=== PATIENT | male | born 1940 | race Caucasian/White ===

== ENCOUNTER 2018-07-18 21:13 | Inpatient (IN) | payer MEDICARE, OTHER ==
[~2018-07-18] VITALS: Ht 188 cm; Wt 81.8 kg
[~2018-07-18 21:13] MED LIST: APIX5TAB PO; ASPI-630 PO; ATOR10TA PO; CELE200C PO; CHOL4POW2 PO; CYAN10005 PO; DOCU50CA9 PO; DUTA0.5C PO; ERGO500027 PO; FENT1PAT17 TD; HYDR-2761 PO; HYDR1TAB20 PO; LISI10TA2 PO; METO-269 PO; METO100T5 PO; PROC10TA57 PO; SERT100T PO; ZOLP12.52 PO
--- NOTE | 2018-07-18 22:26 | RAD ---
HIP LEFT 2V WITH PELVIS History: FALL. LEFT HIP PAIN. There is a left hip replacement. There is a cortical defect at the lateral subtrochanteric femur compatible with an acute fracture. Mild displacement at the lateral cortex. Generalized bone demineralization. No evidence of dislocation. There are vascular calcifications. Surgical changes with lateral plate and cerclage bands of the proximal right femur partially seen. IMPRESSION: Fracture of the subtrochanteric left femur, could be an incomplete fracture through the lateral cortex or nondisplaced complete fracture. Electronically signed by: Dex Hill MD (07/18/2018 10:23 PM) [facility]
[2018-07-18] MEDS ORDERED: fentaNYL PF VIAL 100 MCG/2 ML VIAL IV ONE (23:00)
[2018-07-18 23:10] LABS: BASO # 0.1 x10^3/uL (0.0-0.2); BASO % 1 % (0-3); EOS # 0.1 x10^3/uL (0.0-0.7); EOS % 1 % (0-3); HEMATOCRIT 39.7 % (39.0-53.0); HEMOGLOBIN 12.9 g/dL (13.0-17.5); LYMPH # 0.8 x10^3/uL (1.0-4.8); LYMPH % 9 % (24-48); MEAN CORPUSCULAR HEMOGLOBIN 27 pg (25-35); MEAN CORPUSCULAR HGB CONC 33 g/dL (31-37); MEAN CORPUSCULAR VOLUME 83 fL (79-100); MONO # 0.6 x10^3/uL (0.0-1.1); MONO % 8 % (0-9); NEUT # 6.6 x10^3uL (1.8-7.7); NEUT % 82 % (31-73); PLATELET COUNT 110 x10^3/uL (140-400); RED CELL DISTRIBUTION WIDTH 17.3 % (11.5-14.5); WHITE BLOOD COUNT 8.1 x10^3/uL (4.0-11.0)
[2018-07-18 23:12] LABS: BILIRUBIN,URINE SMALL (NEG); CLARITY,URINE CLEAR; COLOR,URINE YELLOW; NITRITE,URINE NEGATIVE (NEG); PH,URINE 5.5; PROTEIN,URINE NEGATIVE (NEG-TRACE)
[2018-07-18 23:18] LABS: BACTERIA,URINE MANY /HPF (0-FEW); RBC,URINE OCC /HPF (0-2); SQUAMOUS EPITHELIAL CELL,UR FEW /LPF; WBC,URINE >40 /HPF (0-4)
[2018-07-18 23:19] LABS: HYALINE CASTS, URINE FEW /HPF; PROTHROMBIN TIME PATIENT 18.4 SEC (11.7-14.0)
[2018-07-18 23:24] LABS: CALCIUM 8.6 mg/dL (8.5-10.1); CREATININE 1.1 mg/dL (0.7-1.3); GFR 64.9
[2018-07-18 23:29] LABS: ALBUMIN 3.3 g/dL (3.4-5.0); ALBUMIN/GLOBULIN RATIO 1.1 (1.0-1.7); MAGNESIUM 1.8 mg/dL (1.8-2.4); TOTAL BILIRUBIN 0.7 mg/dL (0.2-1.0); TOTAL PROTEIN 6.4 g/dL (6.4-8.2)
[2018-07-18 23:33] LABS: CREATINE KINASE 36 U/L (39-308)
--- NOTE | 2018-07-18 23:46 | PHYS DOC ---
Past Medical History Past Medical History: A-Fib, Hyperthyroid Alcohol Use: None Drug Use: None Adult General Chief Complaint Chief Complaint: MECHANICAL FALL HPI HPI Patient is a 77 year old [f__sex] who presents with [] Review of Systems Review of Systems Constitutional: Denies fever or chills [] Eyes: Denies change in visual acuity, redness, or eye pain [] HENT: Denies nasal congestion or sore throat [] Respiratory: Denies cough or shortness of breath [] Cardiovascular: No additional information not addressed in HPI [] GI: Denies abdominal pain, nausea, vomiting, bloody stools or diarrhea [] : Denies dysuria or hematuria [] Musculoskeletal: Denies back pain or joint pain [] Integument: Denies rash or skin lesions [] Neurologic: Denies headache, focal weakness or sensory changes [] Endocrine: Denies polyuria or polydipsia [] All other systems were reviewed and found to be within normal limits, except as documented in this note. Current Medications Current Medications Current Medications Medications (Trade) Dose Ordered Sig/Joesph Start Time Stop Time Status Last Admin Dose Admin Fentanyl Citrate (Fentanyl 2ml Vial) 75 mcg 1X ONCE 07/18/18 23:00 07/18/18 23:01 DC 07/18/18 22:56 75 MCG Allergies Allergies Allergies Coded Allergies Type Severity Reaction Last Updated Verified No Known Drug Allergies 04/14/13 No Physical Exam Physical Exam Constitutional: Well developed, well nourished, no acute distress, non-toxic appearance. [] HENT: Normocephalic, atraumatic, bilateral external ears normal, oropharynx moist, no oral exudates, nose normal. [] Eyes: PERRLA, EOMI, conjunctiva normal, no discharge. [] Neck: Normal range of motion, no tenderness, supple, no stridor. [] Cardiovascular:Heart rate regular rhythm, no murmur [] Lungs & Thorax: Bilateral breath sounds clear to auscultation [] Abdomen: Bowel sounds normal, soft, no tenderness, no masses, no pulsatile masses. [] Skin: Warm, dry, no erythema, no rash. [] Back: No tenderness, no CVA tenderness. [] Extremities: No tenderness, no cyanosis, no clubbing, ROM intact, no edema. [] Neurologic: Alert and oriented X 3, normal motor function, normal sensory function, no focal deficits noted. [] Psychologic: Affect normal, judgement normal, mood normal. [] Current Patient Data Vital Signs Vital Signs Date Time Temp Pulse Resp B/P (MAP) Pulse Ox O2 Delivery O2 Flow Rate FiO2 07/18/18 22:58 90 13 92 07/18/18 21:23 98.4 135/83 (100) Room Air 98.4 Lab Values Laboratory Tests Test 07/18/18 23:00 White Blood Count 8.1 x10^3/uL (4.0-11.0) Red Blood Count 4.80 x10^6/uL (4.30-5.70) Hemoglobin 12.9 g/dL (13.0-17.5) L Hematocrit 39.7 % (39.0-53.0) Mean Corpuscular Volume 83 fL (79-100) Mean Corpuscular Hemoglobin 27 pg (25-35) Mean Corpuscular Hemoglobin Concent 33 g/dL (31-37) Red Cell Distribution Width 17.3 % (11.5-14.5) H Platelet Count 110 x10^3/uL (140-400) L Neutrophils (%) (Auto) 82 % (31-73) H Lymphocytes (%) (Auto) 9 % (24-48) L Monocytes (%) (Auto) 8 % (0-9) Eosinophils (%) (Auto) 1 % (0-3) Basophils (%) (Auto) 1 % (0-3) Neutrophils # (Auto) 6.6 x10^3uL (1.8-7.7) Lymphocytes # (Auto) 0.8 x10^3/uL (1.0-4.8) L Monocytes # (Auto) 0.6 x10^3/uL (0.0-1.1) Eosinophils # (Auto) 0.1 x10^3/uL (0.0-0.7) Basophils # (Auto) 0.1 x10^3/uL (0.0-0.2) Prothrombin Time 18.4 SEC (11.7-14.0) H Prothrombin Time INR 1.6 (0.8-1.1) H PTT 43 SEC (24-38) H Urine Collection Type Unknown Urine Color Yellow Urine Clarity Clear Urine pH 5.5 Urine Specific [place] 1.025 Urine Protein Negative mg/dL (NEG-TRACE) Urine Glucose (UA) Negative mg/dL (NEG) Urine Ketones (Stick) Trace mg/dL (NEG) Urine Blood Negative (NEG) Urine Nitrite Negative (NEG) Urine Bilirubin Small (NEG) Urine Urobilinogen Dipstick 1.0 mg/dL (0.2 mg/dL) Urine Leukocyte Esterase Moderate (NEG) Urine RBC Occ /HPF (0-2) Urine WBC >40 /HPF (0-4) Urine Squamous Epithelial Cells Few /LPF Urine Bacteria Many /HPF (0-FEW) Urine Hyaline Casts Few /HPF Urine Mucus Marked /LPF Sodium Level 140 mmol/L (136-145) Potassium Level 4.0 mmol/L (3.5-5.1) Chloride Level 103 mmol/L (98-107) Carbon Dioxide Level 28 mmol/L (21-32) Anion Gap 9 (6-14) Blood Urea Nitrogen 27 mg/dL (8-26) H Creatinine 1.1 mg/dL (0.7-1.3) Estimated GFR (Cockcroft-Gault) 64.9 BUN/Creatinine Ratio 25 (6-20) H Glucose Level 122 mg/dL (70-99) H Calcium Level 8.6 mg/dL (8.5-10.1) Magnesium Level 1.8 mg/dL (1.8-2.4) Total Bilirubin 0.7 mg/dL (0.2-1.0) Aspartate Amino Transferase (AST) 17 U/L (15-37) Alanine Aminotransferase (ALT) 17 U/L (16-63) Alkaline Phosphatase 167 U/L (46-116) H Creatine Kinase 36 U/L (39-308) L Creatine Kinase MB (Mass) 1.3 ng/mL (0.0-3.6) Creatine Kinase MB Relative Index % (0-4) Troponin I Quantitative < 0.017 ng/mL (0.000-0.055) Total Protein 6.4 g/dL (6.4-8.2) Albumin 3.3 g/dL (3.4-5.0) L Albumin/Globulin Ratio 1.1 (1.0-1.7) Laboratory Tests 07/18/18 23:00 Laboratory Tests 07/18/18 23:00 EKG EKG @0005 Sinus rhythm at 88bpm, NO ST elevation, baseline artifact V1-V3 Radiology/Procedures Radiology/Procedures [] Course & Med Decision Making Course & Med Decision Making Pertinent Labs and Imaging studies reviewed. (See chart for details) [] Dragon Disclaimer Dragon Disclaimer This electronic medical record was generated, in whole or in part, using a voice recognition dictation system. Departure Departure Impression: Primary Impression: Periprosthetic fracture around internal prosthetic left hip joint, initial encounter Additional Impression: Urinary tract infection Disposition: 09 ADMITTED INPATIENT Admitting Physician: Deven Ferrera Condition: STABLE Referrals: ROHAN ELLISON (PCP) Problem Qualifiers AGATA DESAI DO Jul 18, 2018 23:46
[2018-07-19] VITALS (14 sets, daily range): BP systolic 91–129; BP diastolic 46–73
[2018-07-19] MEDS: fentaNYL PF VIAL 100 MCG/2 ML VIAL IV PRN ×7 (00:34→22:36)
[2018-07-19] MEDS ORDERED: cefTRIAXone IV Push 1 GM VIAL. IVP ONE (01:00)
--- NOTE | 2018-07-19 07:35 | EKG ---
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 Electronically Signed On 07-22-2018 9:30:22 CDT by Enrique Jordan
--- NOTE | 2018-07-19 09:45 | NUR ---
Dr. Bowman called to request surgery clearance from hospitalist (for Dr. Andino).
--- NOTE | 2018-07-19 10:10 | NUR ---
Dr. Andino confirmed clearance for patient's surgery. Addendum: 07/19/18 at 1423 by RENETTA LOUIS RN See Dr. Andino's notes to surgery physician.
--- NOTE | 2018-07-19 10:30 | PDOC1 ---
History and Physical Date of Admission Date of Admission DATE: 07/19/18 TIME: 10:30 Identification/Chief Complaint Chief Complaint 77 year old male who presents with acute fall on left hip xray confirms fx, ortho consulted Past Medical History Past Medical History Past Medical History Past Medical History Past Medical History: A-Fib, Hyperthyroid Alcohol Use: None Drug Use: None family hx hyperlipidemia Cardiovascular: AFIB, HTN, Hyperlipidemia Pulmonary: No pertinent hx CENTRAL NERVOUS SYSTEM: Other GI: No pertinent hx Heme/Onc: No pertinent hx Hepatobiliary: No pertinent hx Psych: Anxiety Musculoskeletal: Osteoarthritis, Other Rheumatologic: No pertinent hx Infectious disease: No pertinent hx Renal/: Benign prostatic enlarg. Endocrine: No pertinent hx Past Surgical History Past Surgical History: Total hip replacement, Tonsillectomy, Other Family History Family History: Hypertension Social History Smoke: No ALCOHOL: none Drugs: None Current Problem List Problem List Problems Medical Problems: (1) Periprosthetic fracture around internal prosthetic left hip joint, initial encounter Status: Acute (2) Urinary tract infection Status: Acute Current Medications Current Medications Current Medications Fentanyl Citrate (Fentanyl 2ml Vial) 75 mcg 1X ONCE IV Last administered on 07/18/18at 22:56; Start 07/18/18 at 23:00; Stop 07/18/18 at 23:01; Status DC Ondansetron HCl (Zofran) 4 mg PRN Q8HRS PRN IV NAUSEA/VOMITING 1ST CHOICE; Start 07/19/18 at 00:00; Stop 07/19/18 at 23:59 Fentanyl Citrate (Fentanyl 2ml Vial) 75 mcg PRN Q1HR PRN IV SEVERE PAIN Last administered on 07/19/18at 02:59; Start 07/19/18 at 00:00; Stop 07/19/18 at 23:59 Ceftriaxone Sodium (Rocephin) 1 gm 1X ONCE IVP Last administered on 07/19/18at 00:34; Start 07/19/18 at 01:00; Stop 07/19/18 at 01:01; Status DC Active Scripts Active Reported Toprol Xl (Metoprolol Succinate) 100 Mg Tab.er.24h 1 Tab PO HS Vitamin B-12 (Cyanocobalamin (Vitamin B-12)) 1,000 Mcg Tablet 500 Mcg PO DAILY Aspirin 81 Mg Tab.chew 1 Tab PO DAILY Compazine (Prochlorperazine Maleate) 10 Mg Tablet 10 Mg PO BID Vitamin D2 (Ergocalciferol (Vitamin D2)) 50,000 Unit Capsule 1 Cap PO WEEKLY Eliquis (Apixaban) 5 Mg Tablet 5 Mg PO BID FENTANYL 50mcg/hr (Fentanyl) 1 Each Patch.td72 1 Each TD Q3DAYS Stool Softener (Docusate Sodium) 50 Mg Capsule 100 Mg PO DAILY Ambien Cr (Zolpidem Tartrate) 12.5 Mg Tab.mphase 12.5 Mg PO HS Zoloft (Sertraline Hcl) 100 Mg Tablet 100 Mg PO BID Allergies Allergies: Coded Allergies: No Known Drug Allergies (Unverified , 04/14/13) ROS Review of System Review of Systems Review of Systems Constitutional: Denies fever or chills [] Eyes: Denies change in visual acuity, redness, or eye pain [] HENT: Denies nasal congestion or sore throat [] Respiratory: Denies cough or shortness of breath [] Cardiovascular: No additional information not addressed in HPI [] GI: Denies abdominal pain, nausea, vomiting, bloody stools or diarrhea [] : Denies dysuria or hematuria [] Musculoskeletal: Denies back pain or joint pain [] Integument: Denies rash or skin lesions [] Neurologic: Denies headache, focal weakness or sensory changes [] Endocrine: Denies polyuria or polydipsia [] 14 pt systems were reviewed and found to be within normal limits, except as documented PSYCHOLOGICAL ROS: No: Anxiety, Behavioral Disorder, Concentration difficultie, Decreased libido, Depression, Disorientation, Hallucinations, Hostility, Irritablity, Memory difficulties, Mood Swings, Obsessive thoughts, Physical abuse, Sexual abuse, Sleep disturbances, Suicidal ideation, Other HEENT: No: Heacaches, Visual Changes, Hearing change, Nasal congestion, Nasal discharge, Oral lesions, Sinus pain, Sore Throat, Epistaxis, Sneezing, Snoring, Tinnitus, Vertigo, Vocal changes, Other Respiratory: No: Cough, Hemoptysis, Orthopnea, Pleuritic Pain, Shortness of breath, SOB with excertion, Sputum Changes, Stridor, Tachypnea, Wheezing, Other Cardiovascular: No Chest Pain, No Palpitations, No Orthopnea, No Paroxysmal Noc. Dyspnea, No Edema, No Lt Headedness, No Other Gastrointestinal: No Nausea, No Vomiting, No Abdominal Pain, No Diarrhea, No Constipation, No Melena, No Hematochezia, No Other Musculoskeletal: Yes Gait Disturbance, Yes Joint Pain Neurological: Yes Gait Disturbance Physical Exam Physical Exam Physical Exam Physical Exam Constitutional: Well developed, well nourished, no acute distress, non-toxic appearance. [] HENT: Normocephalic, atraumatic, bilateral external ears normal, oropharynx moist, no oral exudates, nose normal. [] Eyes: PERRLA, EOMI, conjunctiva normal, no discharge. [] Neck: Normal range of motion, no tenderness, supple, no stridor. [] Cardiovascular:Heart rate regular rhythm, no murmur [] Lungs & Thorax: Bilateral breath sounds clear to auscultation [] Abdomen: Bowel sounds normal, soft, no tenderness, no masses, no pulsatile masses. [] Skin: Warm, dry, no erythema, no rash. [] Back: No tenderness, no CVA tenderness. [] Extremities: no cyanosis, no clubbing, , no edema. [] Neurologic: Alert and oriented X 3, normal motor function, normal sensory function, no focal deficits noted. [] Psychologic: Affect normal, judgement normal, mood normal. [] General: Alert, Oriented X3, Cooperative Heart: no gallops, irregularly irregular Abdomen: Normal bowel sounds, Soft Rectal Exam: not examined Neuro: Normal speech, Cranial nerves 3-12 NL Psych/Mental Status: Mental status NL, Mood NL Vitals Vitals Vital Signs Date Time Temp Pulse Resp B/P (MAP) Pulse Ox O2 Delivery O2 Flow Rate FiO2 07/19/18 07:00 97.5 66 18 106/61 (76) 95 Room Air 97.5 07/19/18 03:29 97.0 Labs Labs Laboratory Tests Test 07/18/18 23:00 White Blood Count 8.1 x10^3/uL (4.0-11.0) Red Blood Count 4.80 x10^6/uL (4.30-5.70) Hemoglobin 12.9 g/dL (13.0-17.5) Hematocrit 39.7 % (39.0-53.0) Mean Corpuscular Volume 83 fL (79-100) Mean Corpuscular Hemoglobin 27 pg (25-35) Mean Corpuscular Hemoglobin Concent 33 g/dL (31-37) Red Cell Distribution Width 17.3 % (11.5-14.5) Platelet Count 110 x10^3/uL (140-400) Neutrophils (%) (Auto) 82 % (31-73) Lymphocytes (%) (Auto) 9 % (24-48) Monocytes (%) (Auto) 8 % (0-9) Eosinophils (%) (Auto) 1 % (0-3) Basophils (%) (Auto) 1 % (0-3) Neutrophils # (Auto) 6.6 x10^3uL (1.8-7.7) Lymphocytes # (Auto) 0.8 x10^3/uL (1.0-4.8) Monocytes # (Auto) 0.6 x10^3/uL (0.0-1.1) Eosinophils # (Auto) 0.1 x10^3/uL (0.0-0.7) Basophils # (Auto) 0.1 x10^3/uL (0.0-0.2) Prothrombin Time 18.4 SEC (11.7-14.0) Prothromb Time International Ratio 1.6 (0.8-1.1) Activated Partial Thromboplast Time 43 SEC (24-38) Urine Collection Type Unknown Urine Color Yellow Urine Clarity Clear Urine pH 5.5 Urine Specific [place] 1.025 Urine Protein Negative mg/dL (NEG-TRACE) Urine Glucose (UA) Negative mg/dL (NEG) Urine Ketones (Stick) Trace mg/dL (NEG) Urine Blood Negative (NEG) Urine Nitrite Negative (NEG) Urine Bilirubin Small (NEG) Urine Urobilinogen Dipstick 1.0 mg/dL (0.2 mg/dL) Urine Leukocyte Esterase Moderate (NEG) Urine RBC Occ /HPF (0-2) Urine WBC >40 /HPF (0-4) Urine Squamous Epithelial Cells Few /LPF Urine Bacteria Many /HPF (0-FEW) Urine Hyaline Casts Few /HPF Urine Mucus Marked /LPF Sodium Level 140 mmol/L (136-145) Potassium Level 4.0 mmol/L (3.5-5.1) Chloride Level 103 mmol/L (98-107) Carbon Dioxide Level 28 mmol/L (21-32) Anion Gap 9 (6-14) Blood Urea Nitrogen 27 mg/dL (8-26) Creatinine 1.1 mg/dL (0.7-1.3) Estimated GFR (Cockcroft-Gault) 64.9 BUN/Creatinine Ratio 25 (6-20) Glucose Level 122 mg/dL (70-99) Calcium Level 8.6 mg/dL (8.5-10.1) Magnesium Level 1.8 mg/dL (1.8-2.4) Total Bilirubin 0.7 mg/dL (0.2-1.0) Aspartate Amino Transf (AST/SGOT) 17 U/L (15-37) Alanine Aminotransferase (ALT/SGPT) 17 U/L (16-63) Alkaline Phosphatase 167 U/L (46-116) Creatine Kinase 36 U/L (39-308) Creatine Kinase MB (Mass) 1.3 ng/mL (0.0-3.6) Creatine Kinase MB Relative Index % (0-4) Troponin I Quantitative < 0.017 ng/mL (0.000-0.055) Total Protein 6.4 g/dL (6.4-8.2) Albumin 3.3 g/dL (3.4-5.0) Albumin/Globulin Ratio 1.1 (1.0-1.7) Laboratory Tests Test 07/18/18 23:00 White Blood Count 8.1 x10^3/uL (4.0-11.0) Red Blood Count 4.80 x10^6/uL (4.30-5.70) Hemoglobin 12.9 g/dL (13.0-17.5) Hematocrit 39.7 % (39.0-53.0) Mean Corpuscular Volume 83 fL (79-100) Mean Corpuscular Hemoglobin 27 pg (25-35) Mean Corpuscular Hemoglobin Concent 33 g/dL (31-37) Red Cell Distribution Width 17.3 % (11.5-14.5) Platelet Count 110 x10^3/uL (140-400) Neutrophils (%) (Auto) 82 % (31-73) Lymphocytes (%) (Auto) 9 % (24-48) Monocytes (%) (Auto) 8 % (0-9) Eosinophils (%) (Auto) 1 % (0-3) Basophils (%) (Auto) 1 % (0-3) Neutrophils # (Auto) 6.6 x10^3uL (1.8-7.7) Lymphocytes # (Auto) 0.8 x10^3/uL (1.0-4.8) Monocytes # (Auto) 0.6 x10^3/uL (0.0-1.1) Eosinophils # (Auto) 0.1 x10^3/uL (0.0-0.7) Basophils # (Auto) 0.1 x10^3/uL (0.0-0.2) Prothrombin Time 18.4 SEC (11.7-14.0) Prothromb Time International Ratio 1.6 (0.8-1.1) Activated Partial Thromboplast Time 43 SEC (24-38) Urine Collection Type Unknown Urine Color Yellow Urine Clarity Clear Urine pH 5.5 Urine Specific [place] 1.025 Urine Protein Negative mg/dL (NEG-TRACE) Urine Glucose (UA) Negative mg/dL (NEG) Urine Ketones (Stick) Trace mg/dL (NEG) Urine Blood Negative (NEG) Urine Nitrite Negative (NEG) Urine Bilirubin Small (NEG) Urine Urobilinogen Dipstick 1.0 mg/dL (0.2 mg/dL) Urine Leukocyte Esterase Moderate (NEG) Urine RBC Occ /HPF (0-2) Urine WBC >40 /HPF (0-4) Urine Squamous Epithelial Cells Few /LPF Urine Bacteria Many /HPF (0-FEW) Urine Hyaline Casts Few /HPF Urine Mucus Marked /LPF Sodium Level 140 mmol/L (136-145) Potassium Level 4.0 mmol/L (3.5-5.1) Chloride Level 103 mmol/L (98-107) Carbon Dioxide Level 28 mmol/L (21-32) Anion Gap 9 (6-14) Blood Urea Nitrogen 27 mg/dL (8-26) Creatinine 1.1 mg/dL (0.7-1.3) Estimated GFR (Cockcroft-Gault) 64.9 BUN/Creatinine Ratio 25 (6-20) Glucose Level 122 mg/dL (70-99) Calcium Level 8.6 mg/dL (8.5-10.1) Magnesium Level 1.8 mg/dL (1.8-2.4) Total Bilirubin 0.7 mg/dL (0.2-1.0) Aspartate Amino Transf (AST/SGOT) 17 U/L (15-37) Alanine Aminotransferase (ALT/SGPT) 17 U/L (16-63) Alkaline Phosphatase 167 U/L (46-116) Creatine Kinase 36 U/L (39-308) Creatine Kinase MB (Mass) 1.3 ng/mL (0.0-3.6) Creatine Kinase MB Relative Index % (0-4) Troponin I Quantitative < 0.017 ng/mL (0.000-0.055) Total Protein 6.4 g/dL (6.4-8.2) Albumin 3.3 g/dL (3.4-5.0) Albumin/Globulin Ratio 1.1 (1.0-1.7) Images Images HIP LEFT 2V WITH PELVIS History: FALL. LEFT HIP PAIN. There is a left hip replacement. There is a cortical defect at the lateral subtrochanteric femur compatible with an acute fracture. Mild displacement at the lateral cortex. Generalized bone demineralization. No evidence of dislocation. There are vascular calcifications. Surgical changes with lateral plate and cerclage bands of the proximal right femur partially seen. IMPRESSION: Fracture of the subtrochanteric left femur, could be an incomplete fracture through the lateral cortex or nondisplaced complete fracture. Electronically signed by: Agata Hill MD (07/18/2018 10:23 PM) [facility] DICTATED and SIGNED BY: AGATA HILL MD DATE: 07/18/182222 VTE Prophylaxis Ordered VTE Prophylaxis Devices: Yes VTE Pharmacological Prophylaxi: Yes Assessment/Plan Assessment/Plan IMPRESSION: Fracture of the subtrochanteric left femur, possible incomplete fracture through the lateral cortex or nondisplaced complete fracture. hx a-fib, chronic recent Fall with compression fracture of T12 and L1, Status post kyphoplasty of the compression fracture, chronic anticoagulation hypertension. UTI plan ortho consult npo admit iv pain control hold eliquis iv fluid support tele bed IV ANTIBIOTICS LIV AMIN MD Jul 19, 2018 10:30
[2018-07-19] MEDS: IV NORMAL SALINE 1000ML BAG 1,000 ML IV SCH (10:45)
--- NOTE | 2018-07-19 10:45 | NUR ---
Dr. Andino ordered 0.9% NS 1,000 to run at 50 ML/Hour -- [employer] Down at this time -- Order entered/acknowledged when system back up. Fentanyl 75 mcg given at 11:00 a.m. (see both paper MAR and re-entered in eMAR when system up (therefore, not scanned).
--- NOTE | 2018-07-19 11:15 | NUR ---
Samantha RN (PACU) called for a pre-op report on patient.
--- NOTE | 2018-07-19 12:00 | NUR ---
[facility] off-line most of this day shift -- see paper MAR for medication administration.
--- NOTE | 2018-07-19 12:02 | NUR ---
SW following for discharge planning. Discussed with RN, pt is from home with , having surgery today. SW will continue to follow.
[2018-07-19] MEDS: ASPIRIN CHEWABLE 81 MG TABLET. PO SCH (12:30)
[2018-07-19] MEDS: SERTRALINE 50 MG TABLET. PO SCH ×2 (12:31→21:15)
[2018-07-19] MEDS: DOCUSATE SODIUM 100 MG CAPSULE. PO SCH (12:31)
[2018-07-19] MEDS: PROCHLORPERAZINE 5 MG TABLET. PO SCH ×2 (12:31→21:00)
[2018-07-19] MEDS: CYANOCOBALAMIN (VITAMIN B-12) 1,000 MCG TABLET. PO SCH (12:31)
[2018-07-19] MEDS ORDERED: fentaNYL PF VIAL 100 MCG/2 ML VIAL ONE ×2 (13:06→13:37)
[2018-07-19] MEDS ORDERED: IV RINGERS,LACTATED 1000ML 1,000 ML IV SCH (13:14)
[2018-07-19] MEDS ORDERED: fentaNYL PF VIAL 100 MCG/2 ML VIAL IV PRN (13:15)
[2018-07-19] MEDS ORDERED: HYDROmorphone 2 MG/ML VIAL IV PRN (13:15)
[2018-07-19] MEDS ORDERED: ONDANSETRON PF 4 MG/2 ML VIAL. IV PRN ×2 (13:15)
[2018-07-19] MEDS ORDERED: BUPIVAC MPF-EPI 0.5%-1:200000 30 ML VIAL. ONE (13:18)
[2018-07-19] MEDS ORDERED: PROPOFOL 20 ML IV ONE (13:37)
[2018-07-19] MEDS ORDERED: DEXAMETHASONE SOD PHOS 4 MG/ML VIAL ONE (13:37)
[2018-07-19] MEDS ORDERED: ROCURONIUM 50 MG/5 ML VIAL. ONE (13:37)
[2018-07-19] MEDS ORDERED: FAMOTIDINE 20 MG/2 ML VIAL ONE (13:37)
[2018-07-19] MEDS ORDERED: ONDANSETRON PF 4 MG/2 ML VIAL. ONE (13:37)
[2018-07-19] MEDS ORDERED: LIDOCAINE 2% PF 5 ML VIAL. ONE (13:37)
[2018-07-19] MEDS ORDERED: PHENYLEPHRINE in 0.9% NACL PF 1 MG/10 ML SYRINGE. IV ONE (14:20)
[2018-07-19] MEDS ORDERED: BUPIVAC MPF-EPI 0.5%-1:200000 30 ML VIAL. INJ ONE (14:21)
[2018-07-19] MEDS ORDERED: GLYCOPYRROLATE 1 MG/5 ML VIAL. ONE (15:43)
[2018-07-19] MEDS ORDERED: NEOSTIGMINE METHYLSULFATE 5 MG/5 ML SYRINGE. ONE (15:43)
[2018-07-19] MEDS ORDERED: DESFLURANE > 120 MINUTES IH ONE (16:04)
--- NOTE | 2018-07-19 16:11 | PDOC4 ---
Operative Note Operative Note Date of surgery: 07/19/2018 Preoperative diagnosis: Displaced subtrochanteric periprosthetic femur fracture around total hip arthroplasty Postoperative diagnosis: Same with proximally fixed hip prosthesis Operative procedure: Operative reduction internal fixation left periprosthetic femur fracture with locking plate screw and cable fixation Surgeon: Gracie Assist: Viktoriya Anesthesia: Gen. Estimated blood loss: 125 mL Complications: None Operative indications: Patient previously ambulated with a walker and fell sustaining the above injury. I have described to the patient and his family the rationale for fixation of his fracture since the proximal portion of the hip implant appears to be intact but the stem distally is loose therefore we would reinforce this area with a cable plate and screw construct that goes well beyond the stem to reinforce the fracture site until it can heal he can weight-bear in a limited fashion and undergo transfers in the interim to avoid immobility related complications. We reviewed the possible risks of instability nonhealing infection nerve or blood vessel damage medical or other anesthetic complications among others he wishes to proceed with surgical evaluation and treatment. Operative text: Patient was identified procedure verified patient placed in the supine position on the operating table. After adequate amounts of general anesthesia were administered he was placed in the Decubitus position left side up all bony prominences were well-padded and the left lower extremity was prepped and draped in standard sterile fashion. After timeout was performed patient procedure identified and verified a lateral incision was made from the greater trochanter down the femoral shaft to allow adequate visualization iliotibial band and vastus lateralis were split to allow placement of a 9 hole Roland periprosthetic plate. After verification along the femur under fluoroscopic guidance a distal non-locking screw was placed and a cable was placed centrally to reduce the fracture. Proximal locking screws were placed in the greater trochanter missing the prosthesis and additional cable was placed distally to further obtain fracture reduction where it was somewhat comminuted in the subtrochanteric area distal locking screws were placed with the minimally invasive guide and excellent fixation and anatomic reduction accomplished throughout. Fluoroscopic guidance revealed excellent placement of hardware fracture reduction thorough irrigation carried out normal saline solution iliotibial band fascia were closed with #1 PDS suture subcutaneous closure with buried Vicryl suture skin closure with lexx sterile dressings were applied patient was returned to recovery room in stable condition having tolerated the procedure well. Viktoriya santizo was present for the procedure assisted in the prepping draping retraction and skin closure ANDREA ELAM MD Jul 19, 2018 16:11
[2018-07-19] MEDS: ACETAMINOPHEN 500 MG TABLET PO PRN ×2 (16:52→21:15)
[2018-07-19] MEDS: PROCHLORPERAZINE 10 MG/2 ML VIAL. IV PRN ×2 (16:58→17:11)
[2018-07-19] MEDS: MORPHINE SULFATE 2 MG/ML VIAL. IV PRN ×2 (17:01→17:24)
[2018-07-19] MEDS: METOPROLOL SUCC 24HR ER 100 MG TAB.ER.24H. PO SCH (21:00)
--- NOTE | 2018-07-19 22:33 | NUR ---
Medications "not done" for this pt. This nurse not on shift during this time.
[2018-07-19] MEDS: cefTRIAXone IV Push 1 GM VIAL. IVP SCH (22:36)
[2018-07-20] MEDS: fentaNYL PF VIAL 100 MCG/2 ML VIAL IV PRN ×6 (02:06→22:48)
[2018-07-20 03:00] VITALS: BP 92/84
[2018-07-20] MEDS: IV NORMAL SALINE 1000ML BAG 1,000 ML IV SCH ×2 (05:43→22:55)
--- NOTE | 2018-07-20 06:27 | NUR ---
Pt.'s daughter called for an update this morning. Pt. doing well in bed resting. Stated to daughter that pt. will probably go to a facility since he did have a fracture and will need rehabilitation for it. Daughter already aware of the need for this. She also wondered how long pt. will have catheter in and explained that usually its POD1 or POD2 depending on what the doctor says. Daughter was pleasant. Will continue to monitor pt.
[2018-07-20 07:00] VITALS: BP 107/59
[2018-07-20] MEDS: ASPIRIN CHEWABLE 81 MG TABLET. PO SCH (08:25)
[2018-07-20] MEDS: PROCHLORPERAZINE 5 MG TABLET. PO SCH ×2 (08:26→21:16)
[2018-07-20] MEDS: CYANOCOBALAMIN (VITAMIN B-12) 1,000 MCG TABLET. PO SCH (08:26)
[2018-07-20] MEDS: DOCUSATE SODIUM 100 MG CAPSULE. PO SCH (08:26)
[2018-07-20] MEDS: SERTRALINE 50 MG TABLET. PO SCH ×2 (08:26→21:16)
[2018-07-20] MEDS ORDERED: fentaNYL 50MCG/HR PATCH 1 PATCH PATCH.TD72 TD SCH (09:00)
[2018-07-20] MEDS ORDERED: ERGOCALCIFEROL (VITAMIN D2) 50,000 UNIT CAPSULE. PO SCH (09:00)
--- NOTE | 2018-07-20 09:56 | NUR ---
SW following for discharge planning. Discussed with RN, pt had surgery yesterday. SW awaiting PT/OT eval for discharge recommendations. SW will continue to follow.
[2018-07-20] MEDS: MULTIVITAMIN with MINERAL TABLET. PO SCH (10:31)
[2018-07-20] MEDS: ASCORBIC ACID 500 MG TABLET PO SCH (10:31)
--- NOTE | 2018-07-20 10:54 | NUR ---
Patients dressing on left hip saturated with sanguineous fluid. Changed dressing to area and notified Dr. Bowman.
[2018-07-20 11:00] VITALS: BP 103/58
--- NOTE | 2018-07-20 12:24 | PDOC ---
PROGRESS NOTES History of Present Illness History of Present Illness Assessment/Plan Assessment/Plan IMPRESSION: Fracture of the subtrochanteric left femur, possible incomplete fracture through the lateral cortex or nondisplaced complete fracture. hx a-fib, chronic recent Fall with compression fracture of T12 and L1, Status post kyphoplasty of the compression fracture, chronic anticoagulation hypertension. UTI plan ortho following npo admit iv pain control hold eliquis iv fluid support tele bed IV ANTIBIOTICS 34 MIN PT EXAM, CHART REVIEW > 50% of time spent with exam, chart review, pt care coordination Vitals Vitals Vital Signs Date Time Temp Pulse Resp B/P (MAP) Pulse Ox O2 Delivery O2 Flow Rate FiO2 07/20/18 12:08 97 Room Air 07/20/18 11:00 97.7 83 16 103/58 (73) 97.7 07/19/18 16:17 10 Physical Exam General: Alert, Oriented X3, Cooperative Lungs: Clear Abdomen: Normal bowel sounds, Soft Assessment and Plan Assessmemt and Plan Problems Medical Problems: (1) Periprosthetic fracture around internal prosthetic left hip joint, initial encounter Status: Acute (2) Urinary tract infection Status: Acute Comment Review of Relevant I have reviewed the following items lulu (where applicable) has been applied. Labs Laboratory Tests Test 07/18/18 23:00 07/19/18 01:30 White Blood Count 8.1 x10^3/uL (4.0-11.0) Red Blood Count 4.80 x10^6/uL (4.30-5.70) Hemoglobin 12.9 g/dL (13.0-17.5) Hematocrit 39.7 % (39.0-53.0) Mean Corpuscular Volume 83 fL (79-100) Mean Corpuscular Hemoglobin 27 pg (25-35) Mean Corpuscular Hemoglobin Concent 33 g/dL (31-37) Red Cell Distribution Width 17.3 % (11.5-14.5) Platelet Count 110 x10^3/uL (140-400) Neutrophils (%) (Auto) 82 % (31-73) Lymphocytes (%) (Auto) 9 % (24-48) Monocytes (%) (Auto) 8 % (0-9) Eosinophils (%) (Auto) 1 % (0-3) Basophils (%) (Auto) 1 % (0-3) Neutrophils # (Auto) 6.6 x10^3uL (1.8-7.7) Lymphocytes # (Auto) 0.8 x10^3/uL (1.0-4.8) Monocytes # (Auto) 0.6 x10^3/uL (0.0-1.1) Eosinophils # (Auto) 0.1 x10^3/uL (0.0-0.7) Basophils # (Auto) 0.1 x10^3/uL (0.0-0.2) Prothrombin Time 18.4 SEC (11.7-14.0) Prothromb Time International Ratio 1.6 (0.8-1.1) Activated Partial Thromboplast Time 43 SEC (24-38) Urine Collection Type Unknown Urine Color Yellow Urine Clarity Clear Urine pH 5.5 Urine Specific [place] 1.025 Urine Protein Negative mg/dL (NEG-TRACE) Urine Glucose (UA) Negative mg/dL (NEG) Urine Ketones (Stick) Trace mg/dL (NEG) Urine Blood Negative (NEG) Urine Nitrite Negative (NEG) Urine Bilirubin Small (NEG) Urine Urobilinogen Dipstick 1.0 mg/dL (0.2 mg/dL) Urine Leukocyte Esterase Moderate (NEG) Urine RBC Occ /HPF (0-2) Urine WBC >40 /HPF (0-4) Urine Squamous Epithelial Cells Few /LPF Urine Bacteria Many /HPF (0-FEW) Urine Hyaline Casts Few /HPF Urine Mucus Marked /LPF Sodium Level 140 mmol/L (136-145) Potassium Level 4.0 mmol/L (3.5-5.1) Chloride Level 103 mmol/L (98-107) Carbon Dioxide Level 28 mmol/L (21-32) Anion Gap 9 (6-14) Blood Urea Nitrogen 27 mg/dL (8-26) Creatinine 1.1 mg/dL (0.7-1.3) Estimated GFR (Cockcroft-Gault) 64.9 BUN/Creatinine Ratio 25 (6-20) Glucose Level 122 mg/dL (70-99) Calcium Level 8.6 mg/dL (8.5-10.1) Magnesium Level 1.8 mg/dL (1.8-2.4) Total Bilirubin 0.7 mg/dL (0.2-1.0) Aspartate Amino Transf (AST/SGOT) 17 U/L (15-37) Alanine Aminotransferase (ALT/SGPT) 17 U/L (16-63) Alkaline Phosphatase 167 U/L (46-116) Creatine Kinase 36 U/L (39-308) Creatine Kinase MB (Mass) 1.3 ng/mL (0.0-3.6) Creatine Kinase MB Relative Index % (0-4) Troponin I Quantitative < 0.017 ng/mL (0.000-0.055) Total Protein 6.4 g/dL (6.4-8.2) Albumin 3.3 g/dL (3.4-5.0) Albumin/Globulin Ratio 1.1 (1.0-1.7) Nasal Screen MRSA (PCR) Negative (Negative) Medications Current Medications Fentanyl Citrate (Fentanyl 2ml Vial) 75 mcg 1X ONCE IV Last administered on 07/18/18 22:56; Start 07/18/18 at 23:00; Stop 07/18/18 at 23:01; Status DC Ondansetron HCl (Zofran) 4 mg PRN Q8HRS PRN IV NAUSEA/VOMITING 1ST CHOICE; Start 07/19/18 at 00:00; Stop 07/19/18 at 23:59; Status DC Fentanyl Citrate (Fentanyl 2ml Vial) 75 mcg PRN Q1HR PRN IV SEVERE PAIN Last administered on 07/19/18 22:36; Start 07/19/18 at 00:00; Stop 07/19/18 at 23:59; Status DC Ceftriaxone Sodium (Rocephin) 1 gm 1X ONCE IVP Last administered on 07/19/18 00:34; Start 07/19/18 at 01:00; Stop 07/19/18 at 01:01; Status DC Aspirin (Children'S Aspirin) 81 mg DAILY PO Last administered on 07/20/18 08:25; Start 07/19/18 at 13:00 Cyanocobalamin (Vitamin B-12) 500 mcg DAILY PO Last administered on 07/20/18 08:26; Start 07/19/18 at 13:00 Ergocalciferol (Vitamin D2) 50,000 unit WEEKLY PO Last administered on 07/20/18 08:26; Start 07/20/18 at 09:00 Fentanyl (Duragesic 50mcg/ Hr Patch) 1 patch Q3DAYS TD Last administered on 5/1/19at 08:27; Start 07/20/18 at 09:00 Metoprolol Succinate (Toprol Xl) 100 mg HS PO ; Start 07/19/18 at 21:00 Docusate Sodium (Colace) 100 mg DAILY PO Last administered on 07/20/18at 08:26; Start 07/19/18 at 13:00 Prochlorperazine Maleate (Compazine) 10 mg BID PO Last administered on 07/20/18at 08:26; Start 07/19/18 at 13:00 Sertraline HCl (Zoloft) 100 mg BID PO Last administered on 07/20/18at 08:26; Start 07/19/18 at 13:00 Ceftriaxone Sodium (Rocephin) 1 gm Q24H IVP Last administered on 07/19/18at 22:36; Start 07/19/18 at 23:00 Sodium Chloride 1,000 ml @ 50 mls/hr Q20H IV Last administered on 07/20/18at 05:43; Start 07/19/18 at 10:45 Cefazolin Sodium/ Dextrose 50 ml @ 100 mls/hr 1X PREOP PRN IV SURGERY; Start 07/19/18 at 13:06; Stop 07/20/18 at 13:05 Fentanyl Citrate (Fentanyl 2ml Vial) 100 mcg STK-MED ONCE .ROUTE ; Start 07/19/18 at 13:06; Stop 07/19/18 at 13:07; Status DC Ondansetron HCl (Zofran) 4 mg PRN Q6HRS PRN IV NAUSEA/VOMITING; Start 07/19/18 at 13:15; Stop 07/20/18 at 13:14 Fentanyl Citrate (Fentanyl 2ml Vial) 25 mcg PRN Q5MIN PRN IV MILD PAIN; Start 07/19/18 at 13:15; Stop 07/20/18 at 13:14 Fentanyl Citrate (Fentanyl 2ml Vial) 50 mcg PRN Q5MIN PRN IV MODERATE TO SEVERE PAIN Last administered on 07/19/18at 16:55; Start 07/19/18 at 13:15; Stop 07/20/18 at 13:14 Morphine Sulfate (Morphine Sulfate) 1 mg PRN Q10MIN PRN IV SEVERE PAIN Last administered on 07/19/18at 17:24; Start 07/19/18 at 13:15; Stop 07/20/18 at 13:14 Ringer's Solution 1,000 ml @ 30 mls/hr Q24H IV Last administered on 07/19/18at 17:27; Start 07/19/18 at 13:14; Stop 07/20/18 at 01:13; Status DC Hydromorphone HCl (Dilaudid) 0.5 mg PRN Q10MIN PRN IV SEV PAIN, Second choice Last administered on 07/19/18at 17:15; Start 07/19/18 at 13:15; Stop 07/20/18 at 13:14 Prochlorperazine Edisylate (Compazine) 5 mg PACU PRN PRN IV NAUSEA, MRX1 Last administered on 07/19/18at 17:11; Start 07/19/18 at 13:15; Stop 07/20/18 at 13:14 Propofol 20 ml @ As Directed STK-MED ONCE IV ; Start 07/19/18 at 13:37; Stop 07/19/18 at 13:38; Status DC Famotidine (Pepcid Vial) 20 mg STK-MED ONCE .ROUTE ; Start 07/19/18 at 13:37; Stop 07/19/18 at 13:38; Status DC Lidocaine HCl (Lidocaine Pf 2% Vial) 5 ml STK-MED ONCE .ROUTE ; Start 07/19/18 at 13:37; Stop 07/19/18 at 13:38; Status DC Ondansetron HCl (Zofran) 4 mg STK-MED ONCE .ROUTE ; Start 07/19/18 at 13:37; Stop 07/19/18 at 13:38; Status DC Dexamethasone Sodium Phosphate (Decadron) 4 mg STK-MED ONCE .ROUTE ; Start 07/19/18 at 13:37; Stop 07/19/18 at 13:38; Status DC Rocuronium [place] (Zemuron) 50 mg STK-MED ONCE .ROUTE ; Start 07/19/18 at 13:37; Stop 07/19/18 at 13:38; Status DC Fentanyl Citrate (Fentanyl 2ml Vial) 100 mcg STK-MED ONCE .ROUTE ; Start 07/19/18 at 13:37; Stop 07/19/18 at 13:38; Status DC Bupivacaine HCl/ Epinephrine Bitart (Sensorcain-Mpf Epi 0.5%-1:[id number]) 30 ml STK-MED ONCE .ROUTE ; Start 07/19/18 at 13:18; Stop 07/19/18 at 14:19; Status DC Phenylephrine HCl (PHENYLEPHRINE in 0.9% NACL PF) 1 mg STK-MED ONCE IV ; Start 07/19/18 at 14:20; Stop 07/19/18 at 14:21; Status DC Bupivacaine HCl/ Epinephrine Bitart (Sensorcain-Mpf Epi 0.5%-1:[id number]) 30 ml STK-MED ONCE INJ Last administered on 07/19/18at 14:21; Start 07/19/18 at 14:21; Stop 07/19/18 at 14:39; Status DC Acetaminophen (Tylenol) 500 mg PRN Q6HRS PRN PO MILD PAIN / TEMP Last administered on 07/19/18at 21:15; Start 07/19/18 at 16:45 Neostigmine Methylsulfate (Neostigmine Methylsulfate) 5 mg STK-MED ONCE .ROUTE ; Start 07/19/18 at 15:43; Stop 07/19/18 at 17:20; Status DC Glycopyrrolate (Robinul) 1 mg STK-MED ONCE .ROUTE ; Start 07/19/18 at 15:43; Stop 07/19/18 at 17:20; Status DC Desflurane (Suprane) 90 ml STK-MED ONCE IH ; Start 07/19/18 at 16:04; Stop 07/19/18 at 17:21; Status DC Fentanyl Citrate (Fentanyl 2ml Vial) 50 mcg PRN Q2HR PRN IV SEVERE PAIN Last administered on 07/20/18at 12:08; Start 07/20/18 at 01:45 Oxycodone/ Acetaminophen (Percocet 5/325) 1 tab PRN Q4HRS PRN PO SEVERE PAIN; Start 07/20/18 at 01:45 Multivitamins (Thera M Plus) 1 tab DAILY PO Last administered on 07/20/18at 10:31; Start 07/20/18 at 10:30 Ascorbic Acid (Vitamin C) 500 mg DAILY PO Last administered on 07/20/18at 10:31; Start 07/20/18 at 10:30 Active Scripts Active Reported Toprol Xl (Metoprolol Succinate) 100 Mg Tab.er.24h 1 Tab PO HS Vitamin B-12 (Cyanocobalamin (Vitamin B-12)) 1,000 Mcg Tablet 500 Mcg PO DAILY Aspirin 81 Mg Tab.chew 1 Tab PO DAILY Compazine (Prochlorperazine Maleate) 10 Mg Tablet 10 Mg PO BID Vitamin D2 (Ergocalciferol (Vitamin D2)) 50,000 Unit Capsule 1 Cap PO WEEKLY Eliquis (Apixaban) 5 Mg Tablet 5 Mg PO BID FENTANYL 50mcg/hr (Fentanyl) 1 Each Patch.td72 1 Each TD Q3DAYS Stool Softener (Docusate Sodium) 50 Mg Capsule 100 Mg PO DAILY Ambien Cr (Zolpidem Tartrate) 12.5 Mg Tab.mphase 12.5 Mg PO HS Zoloft (Sertraline Hcl) 100 Mg Tablet 100 Mg PO BID Vitals/I & O Vital Sign - Last 24 Hours 07/19/18 07/19/18 07/19/18 07/19/18 13:09 13:39 16:17 16:17 Temp 101.1 101.1 Pulse 112 Resp 15 16 B/P (MAP) 99/57 Pulse Ox 98 98 100 O2 Delivery Room Air Room Air Room Air Mask O2 Flow Rate 97.0 97.0 10 10 07/19/18 07/19/18 07/19/18 07/19/18 16:32 16:47 16:48 16:55 Temp 100.5 100.5 100.5 100.5 Pulse 109 104 Resp 16 17 17 19 B/P (MAP) 100/62 109/60 Pulse Ox 98 95 96 95 O2 Delivery Room Air Room Air Room Air Room Air 07/19/18 07/19/18 07/19/18 07/19/18 17:01 17:02 17:15 17:16 Temp 100.5 100.5 Pulse 99 Resp 17 14 17 B/P (MAP) 107/52 Pulse Ox 95 95 95 O2 Delivery Room Air Room Air Room Air Room Air 07/19/18 07/19/18 07/19/18 07/19/18 17:17 17:24 17:32 18:00 Temp 100.5 100.2 97.9 100.5 100.2 97.9 Pulse 99 98 96 Resp 17 17 19 18 B/P (MAP) 95/56 99/50 108/60 (76) Pulse Ox 95 96 96 99 O2 Delivery Room Air Room Air Room Air Room Air 07/19/18 07/19/18 07/19/18 07/19/18 18:15 18:30 18:45 19:00 Temp 97.9 97.9 Pulse 85 85 75 86 B/P (MAP) 106/52 (70) 107/62 (77) 99/56 (70) 91/46 (61) Pulse Ox 97 97 96 96 O2 Delivery Room Air Room Air Room Air Room Air 07/19/18 07/19/18 07/19/18 07/19/18 19:30 20:00 20:00 21:00 Pulse 86 71 71 B/P (MAP) 94/46 (62) 94/58 (70) 100/52 (68) Pulse Ox 95 93 96 O2 Delivery Room Air Room Air Room Air Room Air 07/19/18 07/19/18 07/19/18 07/19/18 21:00 22:00 22:36 23:00 Temp 98.1 98.1 Pulse 96 71 92 Resp 18 18 B/P (MAP) 100/52 100/57 (71) 96/59 (71) Pulse Ox 93 96 O2 Delivery Room Air Room Air Room Air 07/20/18 07/20/18 07/20/18 07/20/18 02:06 02:36 03:00 05:39 Temp 98.3 98.3 Pulse 111 Resp 18 16 18 16 B/P (MAP) 92/84 (87) Pulse Ox 96 O2 Delivery Room Air Room Air Room Air 07/20/18 07/20/18 07/20/18 07/20/18 07:00 07:06 07:36 08:27 Temp 97.9 97.9 Pulse 91 Resp 18 B/P (MAP) 107/59 (75) Pulse Ox 90 O2 Delivery Room Air Room Air Room Air Room Air 07/20/18 07/20/18 11:00 12:08 Temp 97.7 97.7 Pulse 83 Resp 16 B/P (MAP) 103/58 (73) Pulse Ox 97 97 O2 Delivery Room Air Room Air Intake and Output 07/19/18 07/19/18 07/20/18 15:00 23:00 07:00 Intake Total 2100 ml 100 ml Output Total 800 ml 200 ml Balance 1300 ml -100 ml LIV AMIN MD July 20, 2018 12:24
--- NOTE | 2018-07-20 14:20 | NUR ---
Wound Care: Wound care consult for L lower leg abrasion. L lower leg abrasion is scabbed, no open areas noted. No other open wounds noted upon assessment. Pt encouraged to turn while in bed. Pt left in bed, turn to his right side, side rails up x2, call light within reach. Wound care is signing off. DIOGO Hartman informed of the same.
--- NOTE | 2018-07-20 14:24 | CONS ---
DATE OF CONSULTATION: 07/18/2018 REQUESTING PHYSICIAN: Dr. Dex Mendes. REASON FOR CONSULTATION: Left hip fracture. HISTORY OF PRESENT ILLNESS: The patient is a 77-year-old male who previously was ambulatory with a walker, who had had a previous history of left total hip arthroplasty and reported a fall on his left side at home. He denies any loss of consciousness, head, neck or back or other injury, other than the left hip pain, but was unable to bear weight and was brought in for evaluation in the [facility]. X-rays revealed a periprosthetic fracture. PAST MEDICAL HISTORY: Significant for hyperthyroidism, atrial fibrillation, hyperlipidemia, osteoarthritis, benign prostatic enlargement. PAST SURGICAL HISTORY: Left total hip arthroplasty, tonsillectomy. FAMILY HISTORY: Hypertension. SOCIAL HISTORY: Lives at home, ambulates with a walker. Denies smoking, alcohol or drug use. REVIEW OF SYSTEMS: Significant for the previous limitations with ambulation and use of a walker. He notes no specific severe hip pain preexisting to the injury, however. Currently denies any head injury, loss of consciousness, other joint pain, radiating pain, focal weakness, numbness, tingling, chest pain, shortness of breath, visual changes, headache. PHYSICAL EXAMINATION: GENERAL: He is clearly uncomfortable in bed with any type of movement or even with muscle spasms to the left hip area. HEENT: Atraumatic, normocephalic. EXTREMITIES: Examination of the upper extremities reveals good shoulder, elbow and wrist motion bilaterally. There is no swelling, tenderness on palpation, joint instability and he overall has good rotator cuff function. On examination of lower extremities, very tender on any palpation of the left hip, has some slight rotation, really minimal leg length shortening, cannot tolerate any type of movement whatsoever or pressure or weightbearing. He has a well-healed incision from previous total hip arthroplasty. Normal alignment and stability of bilateral knees and ankles. Normal examination of the contralateral right hip. IMAGING: X-rays show a subtrochanteric fracture that goes across the stem of the prosthesis. While it appears to be well fixed proximally, certainly there is room for motion of the stem distally. IMPRESSION: Left periprosthetic proximal femur fracture. TREATMENT PLAN: I went over with him and his family the treatment options for this. Nonoperative treatment would risk basically potentially a loose prosthesis or poor healing in addition to immobility related concerns. I went over with him the plan to fix this operatively with plate and screw fixation, supplemented perhaps by cables to bring the fracture back into alignment and supplement the current fixation of the hip arthroplasty, which I believe can otherwise be preserved by fixing the fracture. He would have limited weightbearing and activity postoperatively until healing was shown. We talked about the possibility of infection, nonhealing, nerve or blood vessel damage, medical or other anesthetic complications among others and he appreciated the discussion. All his questions were answered. We are going to proceed with surgical evaluation and treatment pending medical evaluation and clearance and operating room availability tomorrow. I told him we are going to get in some special plates to fix the fracture and went over the treatment and plan in detail and the generally expected postoperative course. Again, all his questions were answered. He will be admitted through the hospitalist and planned operative intervention tomorrow. ANDREA ELAM MD DR: HARPER/ayden JOB#: [id number] / [id number]
[2018-07-20 15:00] VITALS: BP 93/67
--- NOTE | 2018-07-20 15:20 | NUR ---
TATIANA following. TATIANA met with pt to discuss PT recommendation of SNU. Pt reported he had been to [facility] in the past and would like to go back. Pt could not remember when he had been there, TATIANA spoke with Sharlene at [facility] who confirmed pt had discharged from there 07/02/18. TATIANA to fax referral to [facility] OT note, pt has secondary insurance. RN notified.
--- NOTE | 2018-07-20 16:16 | NUR ---
SW following. Pt is accepted to go to [facility], SW awaiting confirmation of when pt is ready to discharge. SW will continue to follow. RN notified.
[2018-07-20] MEDS: oxyCODONE/APAP 5/325 1 TAB TABLET PO PRN ×2 (17:10→21:17)
[2018-07-20 19:00] VITALS: BP 96/58
[2018-07-20] MEDS: METOPROLOL SUCC 24HR ER 100 MG TAB.ER.24H. PO SCH (21:00)
[2018-07-20] MEDS: cefTRIAXone IV Push 1 GM VIAL. IVP SCH (22:49)
[2018-07-20 23:00] VITALS: BP 103/61
[2018-07-21] MEDS: fentaNYL PF VIAL 100 MCG/2 ML VIAL IV PRN (01:22)
[2018-07-21 03:00] VITALS: BP 109/61
[2018-07-21 07:00] VITALS: BP 111/58
[2018-07-21] MEDS: SERTRALINE 50 MG TABLET. PO SCH ×2 (08:47→20:38)
[2018-07-21] MEDS: PROCHLORPERAZINE 5 MG TABLET. PO SCH ×2 (08:47→20:39)
[2018-07-21] MEDS: ASPIRIN CHEWABLE 81 MG TABLET. PO SCH (08:47)
[2018-07-21] MEDS: ASCORBIC ACID 500 MG TABLET PO SCH (08:47)
[2018-07-21] MEDS: CYANOCOBALAMIN (VITAMIN B-12) 1,000 MCG TABLET. PO SCH (08:48)
[2018-07-21] MEDS: oxyCODONE/APAP 5/325 1 TAB TABLET PO PRN ×2 (08:48→17:43)
[2018-07-21] MEDS: MULTIVITAMIN with MINERAL TABLET. PO SCH (08:48)
[2018-07-21] MEDS: DOCUSATE SODIUM 100 MG CAPSULE. PO SCH (08:48)
--- NOTE | 2018-07-21 09:50 | PDOC ---
PROGRESS NOTES History of Present Illness History of Present Illness Assessment/Plan Assessment/Plan IMPRESSION: Fracture of the subtrochanteric left femur, possible incomplete fracture through the lateral cortex or nondisplaced complete fracture. hx a-fib, chronic recent Fall with compression fracture of T12 and L1, Status post kyphoplasty of the compression fracture, chronic anticoagulation hypertension. UTI plan ortho following admit iv pain control hold eliquis iv fluid support tele bed IV ANTIBIOTICS 36 MIN PT EXAM, CHART REVIEW > 50% of time spent with exam, chart review, pt care coordination Vitals Vitals Vital Signs Date Time Temp Pulse Resp B/P (MAP) Pulse Ox O2 Delivery O2 Flow Rate FiO2 07/21/18 08:48 Room Air 07/21/18 07:00 98.1 113 16 111/58 (75) 99 98.1 07/20/18 15:00 97.0 Physical Exam General: Alert, Oriented X3, Cooperative Lungs: Clear Abdomen: Normal bowel sounds, Soft Assessment and Plan Assessmemt and Plan Problems Medical Problems: (1) Periprosthetic fracture around internal prosthetic left hip joint, initial encounter Status: Acute (2) Urinary tract infection Status: Acute Comment Review of Relevant I have reviewed the following items lulu (where applicable) has been applied. Labs Microbiology 07/18/18 Urine Culture - Preliminary, Resulted 07/18/18 Urine Culture Result 1 (SENAIT) - Preliminary, Resulted Medications Current Medications Fentanyl Citrate (Fentanyl 2ml Vial) 75 mcg 1X ONCE IV Last administered on 07/18/18at 22:56; Start 07/18/18 at 23:00; Stop 07/18/18 at 23:01; Status DC Ondansetron HCl (Zofran) 4 mg PRN Q8HRS PRN IV NAUSEA/VOMITING 1ST CHOICE; Start 07/19/18 at 00:00; Stop 07/19/18 at 23:59; Status DC Fentanyl Citrate (Fentanyl 2ml Vial) 75 mcg PRN Q1HR PRN IV SEVERE PAIN Last administered on 07/19/18at 22:36; Start 07/19/18 at 00:00; Stop 07/19/18 at 23:59; Status DC Ceftriaxone Sodium (Rocephin) 1 gm 1X ONCE IVP Last administered on 07/19/18at 00:34; Start 07/19/18 at 01:00; Stop 07/19/18 at 01:01; Status DC Aspirin (Children'S Aspirin) 81 mg DAILY PO Last administered on 07/21/18 08:47; Start 07/19/18 at 13:00 Cyanocobalamin (Vitamin B-12) 500 mcg DAILY PO Last administered on 07/21/18 08:48; Start 07/19/18 at 13:00 Ergocalciferol (Vitamin D2) 50,000 unit WEEKLY PO Last administered on 07/20/18 08:26; Start 07/20/18 at 09:00 Fentanyl (Duragesic 50mcg/ Hr Patch) 1 patch Q3DAYS TD Last administered on 07/20/18 08:27; Start 07/20/18 at 09:00 Metoprolol Succinate (Toprol Xl) 100 mg HS PO ; Start 07/19/18 at 21:00 Docusate Sodium (Colace) 100 mg DAILY PO Last administered on 07/21/18 08:48; Start 07/19/18 at 13:00 Prochlorperazine Maleate (Compazine) 10 mg BID PO Last administered on 07/21/18 08:47; Start 07/19/18 at 13:00 Sertraline HCl (Zoloft) 100 mg BID PO Last administered on 07/21/18 08:47; Start 07/19/18 at 13:00 Ceftriaxone Sodium (Rocephin) 1 gm Q24H IVP Last administered on 07/20/18 22:49; Start 07/19/18 at 23:00 Sodium Chloride 1,000 ml @ 50 mls/hr Q20H IV Last administered on 07/20/18at 22:55; Start 07/19/18 at 10:45 Cefazolin Sodium/ Dextrose 50 ml @ 100 mls/hr 1X PREOP PRN IV SURGERY; Start 07/19/18 at 13:06; Stop 07/20/18 at 13:05; Status DC Fentanyl Citrate (Fentanyl 2ml Vial) 100 mcg STK-MED ONCE .ROUTE ; Start 07/19/18 at 13:06; Stop 07/19/18 at 13:07; Status DC Ondansetron HCl (Zofran) 4 mg PRN Q6HRS PRN IV NAUSEA/VOMITING; Start 07/19/18 at 13:15; Stop 07/20/18 at 13:14; Status DC Fentanyl Citrate (Fentanyl 2ml Vial) 25 mcg PRN Q5MIN PRN IV MILD PAIN; Start 07/19/18 at 13:15; Stop 07/20/18 at 13:14; Status DC Fentanyl Citrate (Fentanyl 2ml Vial) 50 mcg PRN Q5MIN PRN IV MODERATE TO SEVERE PAIN Last administered on 07/19/18at 16:55; Start 07/19/18 at 13:15; Stop 07/20/18 at 13:14; Status DC Morphine Sulfate (Morphine Sulfate) 1 mg PRN Q10MIN PRN IV SEVERE PAIN Last administered on 07/19/18at 17:24; Start 07/19/18 at 13:15; Stop 07/20/18 at 13:14; Status DC Ringer's Solution 1,000 ml @ 30 mls/hr Q24H IV Last administered on 07/19/18at 17:27; Start 07/19/18 at 13:14; Stop 07/20/18 at 01:13; Status DC Hydromorphone HCl (Dilaudid) 0.5 mg PRN Q10MIN PRN IV SEV PAIN, Second choice Last administered on 07/19/18at 17:15; Start 07/19/18 at 13:15; Stop 07/20/18 at 13:14; Status DC Prochlorperazine Edisylate (Compazine) 5 mg PACU PRN PRN IV NAUSEA, MRX1 Last administered on 07/19/18at 17:11; Start 07/19/18 at 13:15; Stop 07/20/18 at 13:14; Status DC Propofol 20 ml @ As Directed STK-MED ONCE IV ; Start 07/19/18 at 13:37; Stop 07/19/18 at 13:38; Status DC Famotidine (Pepcid Vial) 20 mg STK-MED ONCE .ROUTE ; Start 07/19/18 at 13:37; Stop 07/19/18 at 13:38; Status DC Lidocaine HCl (Lidocaine Pf 2% Vial) 5 ml STK-MED ONCE .ROUTE ; Start 07/19/18 at 13:37; Stop 07/19/18 at 13:38; Status DC Ondansetron HCl (Zofran) 4 mg STK-MED ONCE .ROUTE ; Start 07/19/18 at 13:37; Stop 07/19/18 at 13:38; Status DC Dexamethasone Sodium Phosphate (Decadron) 4 mg STK-MED ONCE .ROUTE ; Start 07/19/18 at 13:37; Stop 07/19/18 at 13:38; Status DC Rocuronium [place] (Zemuron) 50 mg STK-MED ONCE .ROUTE ; Start 07/19/18 at 13:37; Stop 07/19/18 at 13:38; Status DC Fentanyl Citrate (Fentanyl 2ml Vial) 100 mcg STK-MED ONCE .ROUTE ; Start 07/19/18 at 13:37; Stop 07/19/18 at 13:38; Status DC Bupivacaine HCl/ Epinephrine Bitart (Sensorcain-Mpf Epi 0.5%-1:188906) 30 ml STK-MED ONCE .ROUTE ; Start 07/19/18 at 13:18; Stop 07/19/18 at 14:19; Status DC Phenylephrine HCl (PHENYLEPHRINE in 0.9% NACL PF) 1 mg STK-MED ONCE IV ; Start 07/19/18 at 14:20; Stop 07/19/18 at 14:21; Status DC Bupivacaine HCl/ Epinephrine Bitart (Sensorcain-Mpf Epi 0.5%-1:651096) 30 ml STK-MED ONCE INJ Last administered on 07/19/18at 14:21; Start 07/19/18 at 14:21; Stop 07/19/18 at 14:39; Status DC Acetaminophen (Tylenol) 500 mg PRN Q6HRS PRN PO MILD PAIN / TEMP Last administered on 07/19/18at 21:15; Start 07/19/18 at 16:45 Neostigmine Methylsulfate (Neostigmine Methylsulfate) 5 mg STK-MED ONCE .ROUTE ; Start 07/19/18 at 15:43; Stop 07/19/18 at 17:20; Status DC Glycopyrrolate (Robinul) 1 mg STK-MED ONCE .ROUTE ; Start 07/19/18 at 15:43; Stop 07/19/18 at 17:20; Status DC Desflurane (Suprane) 90 ml STK-MED ONCE IH ; Start 07/19/18 at 16:04; Stop 07/19/18 at 17:21; Status DC Fentanyl Citrate (Fentanyl 2ml Vial) 50 mcg PRN Q2HR PRN IV SEVERE PAIN Last administered on 07/21/18 01:22; Start 07/20/18 at 01:45 Oxycodone/ Acetaminophen (Percocet 5/325) 1 tab PRN Q4HRS PRN PO SEVERE PAIN Last administered on 07/21/18 08:48; Start 07/20/18 at 01:45 Multivitamins (Thera M Plus) 1 tab DAILY PO Last administered on 07/21/18 08:48; Start 07/20/18 at 10:30 Ascorbic Acid (Vitamin C) 500 mg DAILY PO Last administered on 07/21/18at 08:47; Start 07/20/18 at 10:30 Active Scripts Active Reported Toprol Xl (Metoprolol Succinate) 100 Mg Tab.er.24h 1 Tab PO HS Vitamin B-12 (Cyanocobalamin (Vitamin B-12)) 1,000 Mcg Tablet 500 Mcg PO DAILY Aspirin 81 Mg Tab.chew 1 Tab PO DAILY Compazine (Prochlorperazine Maleate) 10 Mg Tablet 10 Mg PO BID Vitamin D2 (Ergocalciferol (Vitamin D2)) 50,000 Unit Capsule 1 Cap PO WEEKLY Eliquis (Apixaban) 5 Mg Tablet 5 Mg PO BID FENTANYL 50mcg/hr (Fentanyl) 1 Each Patch.td72 1 Each TD Q3DAYS Stool Softener (Docusate Sodium) 50 Mg Capsule 100 Mg PO DAILY Ambien Cr (Zolpidem Tartrate) 12.5 Mg Tab.mphase 12.5 Mg PO HS Zoloft (Sertraline Hcl) 100 Mg Tablet 100 Mg PO BID Vitals/I & O Vital Sign - Last 24 Hours 07/20/18 07/20/18 07/20/18 07/20/18 11:00 12:08 13:00 15:00 Temp 97.7 98.2 97.7 98.2 Pulse 83 108 Resp 16 18 B/P (MAP) 103/58 (73) 93/67 (76) Pulse Ox 97 97 97 93 O2 Delivery Room Air Room Air Room Air Room Air O2 Flow Rate 97.0 07/20/18 07/20/18 07/20/18 07/20/18 15:00 15:38 17:10 17:57 Temp 93.0 93.0 Pulse 108 Resp 18 B/P (MAP) 93/67 (76) Pulse Ox 93 93 93 93 O2 Delivery Room Air Room Air Room Air 07/20/18 07/20/18 07/20/18 07/20/18 18:00 18:15 19:00 20:10 Temp 98.3 98.3 Pulse 101 Resp 18 B/P (MAP) 96/58 (71) Pulse Ox 93 93 97 O2 Delivery Room Air Room Air Room Air 07/20/18 07/20/18 07/20/18 07/20/18 21:00 21:17 22:20 22:48 Pulse 105 Resp 16 16 18 B/P (MAP) 112/66 O2 Delivery Room Air Room Air Room Air 07/20/18 07/21/18 07/21/18 07/21/18 23:00 01:22 02:09 03:00 Temp 98.3 98.2 98.3 98.2 Pulse 117 97 Resp 18 16 16 18 B/P (MAP) 103/61 (75) 109/61 (77) Pulse Ox 99 98 O2 Delivery Room Air Room Air Room Air Room Air 07/21/18 07/21/18 07:00 08:48 Temp 98.1 98.1 Pulse 113 Resp 16 B/P (MAP) 111/58 (75) Pulse Ox 99 O2 Delivery Room Air Room Air Intake and Output 07/20/18 07/20/18 07/21/18 14:59 22:59 06:59 Intake Total 420 ml 220 ml 1000 ml Output Total 350 ml 275 ml Balance 420 ml -130 ml 725 ml Nutrition Consultation Dietary Evaluation: Recommendations by RD: Increase Calorie Intake, Protein supplementation Comments: ensure q day continue with mvi and vit c for wound healing Expected Outcomes/Goals: to meet > 75% est nutr needs Malnutrition Findings: Body Fat Depletion (Non Severe: Mild Depletion Weight Status: Appropriate LIV AMIN MD July 21, 2018 09:50
[2018-07-21 11:00] VITALS: BP 133/66
[2018-07-21 11:31] LABS: BASO % 1 % (0-3); EOS % 1 % (0-3); HEMATOCRIT 25.7 % (39.0-53.0); HEMOGLOBIN 8.5 g/dL (13.0-17.5); LYMPH # 0.8 x10^3/uL (1.0-4.8); LYMPH % 13 % (24-48); MEAN CORPUSCULAR HEMOGLOBIN 28 pg (25-35); MEAN CORPUSCULAR HGB CONC 33 g/dL (31-37); MEAN CORPUSCULAR VOLUME 84 fL (79-100); MONO # 0.7 x10^3/uL (0.0-1.1); MONO % 11 % (0-9); NEUT # 4.8 x10^3uL (1.8-7.7); NEUT % 75 % (31-73); PLATELET COUNT 92 x10^3/uL (140-400); RED BLOOD COUNT 3.07 x10^6/uL (4.30-5.70); RED CELL DISTRIBUTION WIDTH 17.1 % (11.5-14.5); WHITE BLOOD COUNT 6.4 x10^3/uL (4.0-11.0)
[2018-07-21 11:33] LABS: CALCIUM 8.1 mg/dL (8.5-10.1); GFR 72.5; POTASSIUM 4.1 mmol/L (3.5-5.1)
--- NOTE | 2018-07-21 12:03 | NUR ---
SW following for discharge planning. Discussed with RN, pt is accepted at [facility] and will not have a copay. SW awaiting confirmation if pt can discharge today. SW will continue to follow.
[2018-07-21 15:00] VITALS: BP 111/56
--- NOTE | 2018-07-21 15:29 | PDOC3 ---
Discharge Summary Date of Admission: Jul 18, 2018 Date of Discharge: July 21, 2018 Follow-Up: 1-2 days Admitting Diagnosis comment: dischare dx Assessment/Plan IMPRESSION: Fracture of the subtrochanteric left femur, incomplete fracture through the lateral cortex or nondisplaced complete fracture. hx a-fib, chronic recent Fall with compression fracture of T12 and L1, Status post kyphoplasty of the compression fracture, chronic anticoagulation hypertension. UTI plan ortho ok with d/c admit iv pain control hold eliquis iv fluid support tele bed po ANTIBIOTICS 36 MIN PT EXAM, d/c planning CHART REVIEW > 50% of time spent with exam, chart review, pt care coordination Vitals Vitals Vital Signs Date Time Temp Pulse Resp B/P (MAP) Pulse Ox O2 Delivery O2 Flow Rate FiO2 07/21/18 08:48 Room Air 07/21/18 07:00 98.1 113 16 111/58 (75) 99 98.1 07/20/18 15:00 97.0 Physical Exam General: Alert, Oriented X3, Cooperative Lungs: Clear Abdomen: Normal bowel sounds, Soft Assessment and Plan Assessmemt and Plan Problems Medical Problems: (1) Periprosthetic fracture around internal prosthetic left hip joint, initial encounter Status: Acute FINAL DIAGNOSIS Problems Medical Problems: (1) Periprosthetic fracture around internal prosthetic left hip joint, initial encounter Status: Acute (2) Urinary tract infection Status: Acute Brief Hospital Course Mr. Crystal is a 77 old [sex] who presented with [fall/ hip fracture ] CONDITION AT DISCHARGE: Improved Discharge Medications Current Medications Fentanyl Citrate (Fentanyl 2ml Vial) 75 mcg 1X ONCE IV Last administered on 07/18/18at 22:56; Start 07/18/18 at 23:00; Stop 07/18/18 at 23:01; Status DC Ondansetron HCl (Zofran) 4 mg PRN Q8HRS PRN IV NAUSEA/VOMITING 1ST CHOICE; Start 07/19/18 at 00:00; Stop 07/19/18 at 23:59; Status DC Fentanyl Citrate (Fentanyl 2ml Vial) 75 mcg PRN Q1HR PRN IV SEVERE PAIN Last administered on 07/19/18at 22:36; Start 07/19/18 at 00:00; Stop 07/19/18 at 23:59; Status DC Ceftriaxone Sodium (Rocephin) 1 gm 1X ONCE IVP Last administered on 07/19/18at 00:34; Start 07/19/18 at 01:00; Stop 07/19/18 at 01:01; Status DC Aspirin (Children'S Aspirin) 81 mg DAILY PO Last administered on 07/21/18 08:47; Start 07/19/18 at 13:00 Cyanocobalamin (Vitamin B-12) 500 mcg DAILY PO Last administered on 07/21/18 08:48; Start 07/19/18 at 13:00 Ergocalciferol (Vitamin D2) 50,000 unit WEEKLY PO Last administered on 07/20/18 08:26; Start 07/20/18 at 09:00 Fentanyl (Duragesic 50mcg/ Hr Patch) 1 patch Q3DAYS TD Last administered on 07/20/18 08:27; Start 07/20/18 at 09:00 Metoprolol Succinate (Toprol Xl) 100 mg HS PO ; Start 07/19/18 at 21:00 Docusate Sodium (Colace) 100 mg DAILY PO Last administered on 07/21/18 08:48; Start 07/19/18 at 13:00 Prochlorperazine Maleate (Compazine) 10 mg BID PO Last administered on 07/21/18 08:47; Start 07/19/18 at 13:00 Sertraline HCl (Zoloft) 100 mg BID PO Last administered on 07/21/18 08:47; Start 07/19/18 at 13:00 Ceftriaxone Sodium (Rocephin) 1 gm Q24H IVP Last administered on 07/20/18at 22:49; Start 07/19/18 at 23:00 Sodium Chloride 1,000 ml @ 50 mls/hr Q20H IV Last administered on 07/20/18at 22:55; Start 07/19/18 at 10:45 Cefazolin Sodium/ Dextrose 50 ml @ 100 mls/hr 1X PREOP PRN IV SURGERY; Start 07/19/18 at 13:06; Stop 07/20/18 at 13:05; Status DC Fentanyl Citrate (Fentanyl 2ml Vial) 100 mcg STK-MED ONCE .ROUTE ; Start 07/19/18 at 13:06; Stop 07/19/18 at 13:07; Status DC Ondansetron HCl (Zofran) 4 mg PRN Q6HRS PRN IV NAUSEA/VOMITING; Start 07/19/18 at 13:15; Stop 07/20/18 at 13:14; Status DC Fentanyl Citrate (Fentanyl 2ml Vial) 25 mcg PRN Q5MIN PRN IV MILD PAIN; Start 07/19/18 at 13:15; Stop 07/20/18 at 13:14; Status DC Fentanyl Citrate (Fentanyl 2ml Vial) 50 mcg PRN Q5MIN PRN IV MODERATE TO SEVERE PAIN Last administered on 07/19/18at 16:55; Start 07/19/18 at 13:15; Stop 07/20/18 at 13:14; Status DC Morphine Sulfate (Morphine Sulfate) 1 mg PRN Q10MIN PRN IV SEVERE PAIN Last administered on 07/19/18at 17:24; Start 07/19/18 at 13:15; Stop 07/20/18 at 13:14; Status DC Ringer's Solution 1,000 ml @ 30 mls/hr Q24H IV Last administered on 07/19/18at 17:27; Start 07/19/18 at 13:14; Stop 07/20/18 at 01:13; Status DC Hydromorphone HCl (Dilaudid) 0.5 mg PRN Q10MIN PRN IV SEV PAIN, Second choice L ast administered on 07/19/18at 17:15; Start 07/19/18 at 13:15; Stop 07/20/18 at 13:14; Status DC Prochlorperazine Edisylate (Compazine) 5 mg PACU PRN PRN IV NAUSEA, MRX1 Last administered on 07/19/18at 17:11; Start 07/19/18 at 13:15; Stop 07/20/18 at 13:14; Status DC Propofol 20 ml @ As Directed STK-MED ONCE IV ; Start 07/19/18 at 13:37; Stop 07/19/18 at 13:38; Status DC Famotidine (Pepcid Vial) 20 mg STK-MED ONCE .ROUTE ; Start 07/19/18 at 13:37; Stop 07/19/18 at 13:38; Status DC Lidocaine HCl (Lidocaine Pf 2% Vial) 5 ml STK-MED ONCE .ROUTE ; Start 07/19/18 at 13:37; Stop 07/19/18 at 13:38; Status DC Ondansetron HCl (Zofran) 4 mg STK-MED ONCE .ROUTE ; Start 07/19/18 at 13:37; Stop 07/19/18 at 13:38; Status DC Dexamethasone Sodium Phosphate (Decadron) 4 mg STK-MED ONCE .ROUTE ; Start 07/19/18 at 13:37; Stop 07/19/18 at 13:38; Status DC Rocuronium [place] (Zemuron) 50 mg STK-MED ONCE .ROUTE ; Start 07/19/18 at 13:37; Stop 07/19/18 at 13:38; Status DC Fentanyl Citrate (Fentanyl 2ml Vial) 100 mcg STK-MED ONCE .ROUTE ; Start 07/19/18 at 13:37; Stop 07/19/18 at 13:38; Status DC Bupivacaine HCl/ Epinephrine Bitart (Sensorcain-Mpf Epi 0.5%-1:952061) 30 ml STK-MED ONCE .ROUTE ; Start 07/19/18 at 13:18; Stop 07/19/18 at 14:19; Status DC Phenylephrine HCl (PHENYLEPHRINE in 0.9% NACL PF) 1 mg STK-MED ONCE IV ; Start 07/19/18 at 14:20; Stop 07/19/18 at 14:21; Status DC Bupivacaine HCl/ Epinephrine Bitart (Sensorcain-Mpf Epi 0.5%-1:025546) 30 ml STK-MED ONCE INJ Last administered on 07/19/18at 14:21; Start 07/19/18 at 14:21; Stop 07/19/18 at 14:39; Status DC Acetaminophen (Tylenol) 500 mg PRN Q6HRS PRN PO MILD PAIN / TEMP Last administered on 07/19/18at 21:15; Start 07/19/18 at 16:45 Neostigmine Methylsulfate (Neostigmine Methylsulfate) 5 mg STK-MED ONCE .ROUTE ; Start 07/19/18 at 15:43; Stop 07/19/18 at 17:20; Status DC Glycopyrrolate (Robinul) 1 mg STK-MED ONCE .ROUTE ; Start 07/19/18 at 15:43; Stop 07/19/18 at 17:20; Status DC Desflurane (Suprane) 90 ml STK-MED ONCE IH ; Start 07/19/18 at 16:04; Stop 07/19/18 at 17:21; Status DC Fentanyl Citrate (Fentanyl 2ml Vial) 50 mcg PRN Q2HR PRN IV SEVERE PAIN Last administered on 07/21/18at 01:22; Start 07/20/18 at 01:45 Oxycodone/ Acetaminophen (Percocet 5/325) 1 tab PRN Q4HRS PRN PO SEVERE PAIN Last administered on 07/21/18at 08:48; Start 07/20/18 at 01:45 Multivitamins (Thera M Plus) 1 tab DAILY PO Last administered on 07/21/18at 08:48; Start 07/20/18 at 10:30 Ascorbic Acid (Vitamin C) 500 mg DAILY PO Last administered on 07/21/18at 08:47; Start 07/20/18 at 10:30 Lactobacillus Rhamnosus (Culturelle) 1 cap BID PO ; Start 07/21/18 at 21:00 Active Scripts Active Reported Toprol Xl (Metoprolol Succinate) 100 Mg Tab.er.24h 1 Tab PO HS Vitamin B-12 (Cyanocobalamin (Vitamin B-12)) 1,000 Mcg Tablet 500 Mcg PO DAILY Aspirin 81 Mg Tab.chew 1 Tab PO DAILY Compazine (Prochlorperazine Maleate) 10 Mg Tablet 10 Mg PO BID Vitamin D2 (Ergocalciferol (Vitamin D2)) 50,000 Unit Capsule 1 Cap PO WEEKLY Eliquis (Apixaban) 5 Mg Tablet 5 Mg PO BID FENTANYL 50mcg/hr (Fentanyl) 1 Each Patch.td72 1 Each TD Q3DAYS Stool Softener (Docusate Sodium) 50 Mg Capsule 100 Mg PO DAILY Ambien Cr (Zolpidem Tartrate) 12.5 Mg Tab.mphase 12.5 Mg PO HS Zoloft (Sertraline Hcl) 100 Mg Tablet 100 Mg PO BID Vital Signs Vital Signs Date Time Temp Pulse Resp B/P (MAP) Pulse Ox O2 Delivery O2 Flow Rate FiO2 07/21/18 11:00 98.1 92 16 133/66 (88) 98 Room Air 98.1 07/20/18 15:00 97.0 Labs Laboratory Tests Test 07/21/18 10:47 White Blood Count 6.4 x10^3/uL (4.0-11.0) Red Blood Count 3.07 x10^6/uL (4.30-5.70) Hemoglobin 8.5 g/dL (13.0-17.5) Hematocrit 25.7 % (39.0-53.0) Mean Corpuscular Volume 84 fL (79-100) Mean Corpuscular Hemoglobin 28 pg (25-35) Mean Corpuscular Hemoglobin Concent 33 g/dL (31-37) Red Cell Distribution Width 17.1 % (11.5-14.5) Platelet Count 92 x10^3/uL (140-400) Neutrophils (%) (Auto) 75 % (31-73) Lymphocytes (%) (Auto) 13 % (24-48) Monocytes (%) (Auto) 11 % (0-9) Eosinophils (%) (Auto) 1 % (0-3) Basophils (%) (Auto) 1 % (0-3) Neutrophils # (Auto) 4.8 x10^3uL (1.8-7.7) Lymphocytes # (Auto) 0.8 x10^3/uL (1.0-4.8) Monocytes # (Auto) 0.7 x10^3/uL (0.0-1.1) Eosinophils # (Auto) 0.0 x10^3/uL (0.0-0.7) Basophils # (Auto) 0.0 x10^3/uL (0.0-0.2) Sodium Level 137 mmol/L (136-145) Potassium Level 4.1 mmol/L (3.5-5.1) Chloride Level 104 mmol/L (98-107) Carbon Dioxide Level 30 mmol/L (21-32) Anion Gap 3 (6-14) Blood Urea Nitrogen 18 mg/dL (8-26) Creatinine 1.0 mg/dL (0.7-1.3) Estimated GFR (Cockcroft-Gault) 72.5 Glucose Level 152 mg/dL (70-99) Calcium Level 8.1 mg/dL (8.5-10.1) Laboratory Tests Test 07/21/18 10:47 White Blood Count 6.4 x10^3/uL (4.0-11.0) Red Blood Count 3.07 x10^6/uL (4.30-5.70) Hemoglobin 8.5 g/dL (13.0-17.5) Hematocrit 25.7 % (39.0-53.0) Mean Corpuscular Volume 84 fL (79-100) Mean Corpuscular Hemoglobin 28 pg (25-35) Mean Corpuscular Hemoglobin Concent 33 g/dL (31-37) Red Cell Distribution Width 17.1 % (11.5-14.5) Platelet Count 92 x10^3/uL (140-400) Neutrophils (%) (Auto) 75 % (31-73) Lymphocytes (%) (Auto) 13 % (24-48) Monocytes (%) (Auto) 11 % (0-9) Eosinophils (%) (Auto) 1 % (0-3) Basophils (%) (Auto) 1 % (0-3) Neutrophils # (Auto) 4.8 x10^3uL (1.8-7.7) Lymphocytes # (Auto) 0.8 x10^3/uL (1.0-4.8) Monocytes # (Auto) 0.7 x10^3/uL (0.0-1.1) Eosinophils # (Auto) 0.0 x10^3/uL (0.0-0.7) Basophils # (Auto) 0.0 x10^3/uL (0.0-0.2) Sodium Level 137 mmol/L (136-145) Potassium Level 4.1 mmol/L (3.5-5.1) Chloride Level 104 mmol/L (98-107) Carbon Dioxide Level 30 mmol/L (21-32) Anion Gap 3 (6-14) Blood Urea Nitrogen 18 mg/dL (8-26) Creatinine 1.0 mg/dL (0.7-1.3) Estimated GFR (Cockcroft-Gault) 72.5 Glucose Level 152 mg/dL (70-99) Calcium Level 8.1 mg/dL (8.5-10.1) Allergies Allergies Coded Allergies Type Severity Reaction Last Updated Verified No Known Drug Allergies 04/14/13 No Disposition/Orders: Other (d/c [facility]) Patient Instructions d/c planning 35 min LIV AMIN MD July 21, 2018 15:29
[2018-07-21] MEDS ORDERED: LACT1CAP19 PO (15:33)
[2018-07-21] MEDS ORDERED: MULT1TAB90 PO (15:33)
[2018-07-21] MEDS ORDERED: OXYC1TAB15 PO (15:33)
[2018-07-21] MEDS ORDERED: AMOX1TAB58 PO (15:33)
[2018-07-21] MEDS ORDERED: ASCO500T2 PO (15:33)
--- NOTE | 2018-07-21 15:34 | SNU/HH DC ---
DISCHARGE ORDERS DISCHARGE INFORMATION: FINAL DIAGNOSIS Problems Medical Problems: (1) Periprosthetic fracture around internal prosthetic left hip joint, initial encounter Status: Acute (2) Urinary tract infection Status: Acute CONDITION ON DISCHARGE: Stable CODE STATUS: Code Status: Full SNF: SNF STAY <30 DAYS: Yes HOSPICE: HOSPICE: No HOSPICE EVAL & TREAT: No LTAC: ADMIT TO LTAC: No POST DISCHARGE ORDERS: ACTIVITY ORDERS: Activity as tolerated WEIGHT BEARING STATUS: As tolerated DIET AFTER DISCHARGE: Cardiac CHECKS AFTER DISCHARGE: CHECKS AFTER DISCHARGE: Check blood press - daily, Check your Temp as needed TREATMENT/EQUIPMENT ORDERS: ADAPTIVE EQUIPMENT NEEDED: None, Front wheeled walker Physical Therapy For: Evalulation/Treatment Occupational Therapy For: Evaluation/Treatment DISCHARGE MEDICATIONS: Home Meds Active Scripts Amoxicillin/Potassium Clav (AUGMENTIN 500-125 TABLET) 1 Each Tablet, 1 TAB PO BID for uti, #20 TAB Prov:LIV AMIN MD 07/21/18 Lactobacillus Rhamnosus Gg (CULTURELLE) 1 Each Cap.sprink, 1 CAP PO BID for supplement for 14 Days, #28 CAP Prov:LIV AMIN MD 07/21/18 Oxycodone/Apap 5-325 (PERCOCET 5-325 MG TABLET ) 1 Each Tablet, 1 TAB PO PRN Q4HRS PRN for SEVERE PAIN for 14 Days, #60 TAB Prov:LIV AMIN MD 07/21/18 Ascorbic Acid (VITAMIN C) 500 Mg Tablet, 500 MG PO DAILY for supplement for 30 Days, #30 TAB Prov:LIV AMIN MD 07/21/18 Multivits,Ca,Minerals/Iron/Fa (THERA-M TABLET) 1 Each Tablet, 1 TAB PO DAILY for supplement for 30 Days, #30 TAB Prov:LIV AMIN MD 07/21/18 Reported Medications Metoprolol Succinate (TOPROL XL) 100 Mg Tab.er.24h, 1 TAB PO HS for HTN, #30 TAB 5 Refills 05/04/18 Cyanocobalamin (Vitamin B-12) (VITAMIN B-12) 1,000 Mcg Tablet, 500 MCG PO DAILY for supplement, #30 TAB 2 Refills 05/01/18 Aspirin (ASPIRIN) 81 Mg Tab.chew, 1 TAB PO DAILY for afib, #30 TAB 3 Refills 05/01/18 Prochlorperazine Maleate (Compazine) 10 Mg Tablet, 10 MG PO BID for nausea/vomiting, TAB 05/01/18 Ergocalciferol (Vitamin D2) (VITAMIN D2) 50,000 Unit Capsule, 1 CAP PO WEEKLY for syupplement, #12 CAP 05/01/18 Apixaban (ELIQUIS) 5 Mg Tablet, 5 MG PO BID for afib, TAB 05/01/18 Fentanyl (FENTANYL 50mcg/hr) 1 Each Patch.td72, 1 EACH TD Q3DAYS 04/05/13 Docusate Sodium (STOOL SOFTENER) 50 Mg Capsule, 100 MG PO DAILY for constipation 04/05/13 Zolpidem Tartrate (AMBIEN CR) 12.5 Mg Tab.mphase, 12.5 MG PO HS 04/05/13 Sertraline Hcl (ZOLOFT) 100 Mg Tablet, 100 MG PO BID for depression 04/05/13 ILV AMIN MD July 21, 2018 15:34
--- NOTE | 2018-07-21 16:28 | NUR ---
SW following. Discharge entered for pt to discharge to [facility] this evening, however SW needing correct script for pain medication. Pt to discharge tomorrow morning (07/22/18) around 10am. RN notified.
[2018-07-21 19:15] VITALS: BP 100/60
[2018-07-21] MEDS: METOPROLOL SUCC 24HR ER 100 MG TAB.ER.24H. PO SCH (20:39)
[2018-07-21] MEDS: LACTOBACILLUS RHAMNOSUS GG 1 CAPSULE. PO SCH (20:39)
[2018-07-21] MEDS: IV NORMAL SALINE 1000ML BAG 1,000 ML IV SCH (22:45)
[2018-07-21 23:04] VITALS: BP 122/59
[2018-07-21] MEDS: cefTRIAXone IV Push 1 GM VIAL. IVP SCH (23:28)
[2018-07-22 02:50] VITALS: BP 93/54
[2018-07-22 07:00] VITALS: BP 101/58
[2018-07-22 07:12] LABS: BASO % 1 % (0-3); EOS # 0.1 x10^3/uL (0.0-0.7); EOS % 2 % (0-3); HEMATOCRIT 23.3 % (39.0-53.0); HEMOGLOBIN 7.6 g/dL (13.0-17.5); LYMPH # 0.9 x10^3/uL (1.0-4.8); LYMPH % 18 % (24-48); MEAN CORPUSCULAR HEMOGLOBIN 27 pg (25-35); MEAN CORPUSCULAR HGB CONC 33 g/dL (31-37); MEAN CORPUSCULAR VOLUME 84 fL (79-100); MONO # 0.5 x10^3/uL (0.0-1.1); MONO % 10 % (0-9); NEUT # 3.6 x10^3uL (1.8-7.7); NEUT % 71 % (31-73); PLATELET COUNT 85 x10^3/uL (140-400); RED BLOOD COUNT 2.79 x10^6/uL (4.30-5.70); RED CELL DISTRIBUTION WIDTH 16.8 % (11.5-14.5); WHITE BLOOD COUNT 5.2 x10^3/uL (4.0-11.0)
[2018-07-22 07:25] LABS: CALCIUM 7.7 mg/dL (8.5-10.1); CREATININE 0.9 mg/dL (0.7-1.3); GFR 81.8; POTASSIUM 4.1 mmol/L (3.5-5.1)
--- NOTE | 2018-07-22 07:37 | PDOC ---
PROGRESS NOTES Chief Complaint Chief Complaint Fracture of the subtrochanteric left femur, possible incomplete fracture through the lateral cortex or nondisplaced complete fracture. hx a-fib, chronic recent Fall with compression fracture of T12 and L1, Status post kyphoplasty of the compression fracture, chronic anticoagulation hypertension. UTI plan ortho following admit iv pain control hold eliquis iv fluid support tele bed IV ANTIBIOTICS History of Present Illness History of Present Illness 07/19/18 s/p Operative reduction internal fixation left periprosthetic femur fracture with locking plate screw and cable fixation Patient still recovering from his prior fracture, found with UTI, compression fractures. Discharge delayed yesterday, feeling ok today, transport set up for 1200 Vitals Vitals Vital Signs Date Time Temp Pulse Resp B/P (MAP) Pulse Ox O2 Delivery O2 Flow Rate FiO2 07/22/18 02:50 98.3 77 20 93/54 (67) 94 Room Air 98.3 Physical Exam General: Alert, Oriented X3, Cooperative Lungs: Clear Abdomen: Normal bowel sounds, Soft Labs LABS Laboratory Tests Test 07/21/18 10:47 07/22/18 06:05 White Blood Count 6.4 x10^3/uL (4.0-11.0) 5.2 x10^3/uL (4.0-11.0) Red Blood Count 3.07 x10^6/uL (4.30-5.70) 2.79 x10^6/uL (4.30-5.70) Hemoglobin 8.5 g/dL (13.0-17.5) 7.6 g/dL (13.0-17.5) Hematocrit 25.7 % (39.0-53.0) 23.3 % (39.0-53.0) Mean Corpuscular Volume 84 fL (79-100) 84 fL (79-100) Mean Corpuscular Hemoglobin 28 pg (25-35) 27 pg (25-35) Mean Corpuscular Hemoglobin Concent 33 g/dL (31-37) 33 g/dL (31-37) Red Cell Distribution Width 17.1 % (11.5-14.5) 16.8 % (11.5-14.5) Platelet Count 92 x10^3/uL (140-400) 85 x10^3/uL (140-400) Neutrophils (%) (Auto) 75 % (31-73) 71 % (31-73) Lymphocytes (%) (Auto) 13 % (24-48) 18 % (24-48) Monocytes (%) (Auto) 11 % (0-9) 10 % (0-9) Eosinophils (%) (Auto) 1 % (0-3) 2 % (0-3) Basophils (%) (Auto) 1 % (0-3) 1 % (0-3) Neutrophils # (Auto) 4.8 x10^3uL (1.8-7.7) 3.6 x10^3uL (1.8-7.7) Lymphocytes # (Auto) 0.8 x10^3/uL (1.0-4.8) 0.9 x10^3/uL (1.0-4.8) Monocytes # (Auto) 0.7 x10^3/uL (0.0-1.1) 0.5 x10^3/uL (0.0-1.1) Eosinophils # (Auto) 0.0 x10^3/uL (0.0-0.7) 0.1 x10^3/uL (0.0-0.7) Basophils # (Auto) 0.0 x10^3/uL (0.0-0.2) 0.0 x10^3/uL (0.0-0.2) Sodium Level 137 mmol/L (136-145) 138 mmol/L (136-145) Potassium Level 4.1 mmol/L (3.5-5.1) 4.1 mmol/L (3.5-5.1) Chloride Level 104 mmol/L (98-107) 103 mmol/L (98-107) Carbon Dioxide Level 30 mmol/L (21-32) 30 mmol/L (21-32) Anion Gap 3 (6-14) 5 (6-14) Blood Urea Nitrogen 18 mg/dL (8-26) 16 mg/dL (8-26) Creatinine 1.0 mg/dL (0.7-1.3) 0.9 mg/dL (0.7-1.3) Estimated GFR (Cockcroft-Gault) 72.5 81.8 Glucose Level 152 mg/dL (70-99) 108 mg/dL (70-99) Calcium Level 8.1 mg/dL (8.5-10.1) 7.7 mg/dL (8.5-10.1) Assessment and Plan Assessmemt and Plan Problems Medical Problems: (1) Periprosthetic fracture around internal prosthetic left hip joint, initial encounter Status: Acute (2) Urinary tract infection Status: Acute Comment Review of Relevant I have reviewed the following items lulu (where applicable) has been applied. Labs Laboratory Tests Test 07/21/18 10:47 07/22/18 06:05 White Blood Count 6.4 x10^3/uL (4.0-11.0) 5.2 x10^3/uL (4.0-11.0) Red Blood Count 3.07 x10^6/uL (4.30-5.70) 2.79 x10^6/uL (4.30-5.70) Hemoglobin 8.5 g/dL (13.0-17.5) 7.6 g/dL (13.0-17.5) Hematocrit 25.7 % (39.0-53.0) 23.3 % (39.0-53.0) Mean Corpuscular Volume 84 fL (79-100) 84 fL (79-100) Mean Corpuscular Hemoglobin 28 pg (25-35) 27 pg (25-35) Mean Corpuscular Hemoglobin Concent 33 g/dL (31-37) 33 g/dL (31-37) Red Cell Distribution Width 17.1 % (11.5-14.5) 16.8 % (11.5-14.5) Platelet Count 92 x10^3/uL (140-400) 85 x10^3/uL (140-400) Neutrophils (%) (Auto) 75 % (31-73) 71 % (31-73) Lymphocytes (%) (Auto) 13 % (24-48) 18 % (24-48) Monocytes (%) (Auto) 11 % (0-9) 10 % (0-9) Eosinophils (%) (Auto) 1 % (0-3) 2 % (0-3) Basophils (%) (Auto) 1 % (0-3) 1 % (0-3) Neutrophils # (Auto) 4.8 x10^3uL (1.8-7.7) 3.6 x10^3uL (1.8-7.7) Lymphocytes # (Auto) 0.8 x10^3/uL (1.0-4.8) 0.9 x10^3/uL (1.0-4.8) Monocytes # (Auto) 0.7 x10^3/uL (0.0-1.1) 0.5 x10^3/uL (0.0-1.1) Eosinophils # (Auto) 0.0 x10^3/uL (0.0-0.7) 0.1 x10^3/uL (0.0-0.7) Basophils # (Auto) 0.0 x10^3/uL (0.0-0.2) 0.0 x10^3/uL (0.0-0.2) Sodium Level 137 mmol/L (136-145) 138 mmol/L (136-145) Potassium Level 4.1 mmol/L (3.5-5.1) 4.1 mmol/L (3.5-5.1) Chloride Level 104 mmol/L (98-107) 103 mmol/L (98-107) Carbon Dioxide Level 30 mmol/L (21-32) 30 mmol/L (21-32) Anion Gap 3 (6-14) 5 (6-14) Blood Urea Nitrogen 18 mg/dL (8-26) 16 mg/dL (8-26) Creatinine 1.0 mg/dL (0.7-1.3) 0.9 mg/dL (0.7-1.3) Estimated GFR (Cockcroft-Gault) 72.5 81.8 Glucose Level 152 mg/dL (70-99) 108 mg/dL (70-99) Calcium Level 8.1 mg/dL (8.5-10.1) 7.7 mg/dL (8.5-10.1) Laboratory Tests Test 07/21/18 10:47 07/22/18 06:05 White Blood Count 6.4 x10^3/uL (4.0-11.0) 5.2 x10^3/uL (4.0-11.0) Red Blood Count 3.07 x10^6/uL (4.30-5.70) 2.79 x10^6/uL (4.30-5.70) Hemoglobin 8.5 g/dL (13.0-17.5) 7.6 g/dL (13.0-17.5) Hematocrit 25.7 % (39.0-53.0) 23.3 % (39.0-53.0) Mean Corpuscular Volume 84 fL (79-100) 84 fL (79-100) Mean Corpuscular Hemoglobin 28 pg (25-35) 27 pg (25-35) Mean Corpuscular Hemoglobin Concent 33 g/dL (31-37) 33 g/dL (31-37) Red Cell Distribution Width 17.1 % (11.5-14.5) 16.8 % (11.5-14.5) Platelet Count 92 x10^3/uL (140-400) 85 x10^3/uL (140-400) Neutrophils (%) (Auto) 75 % (31-73) 71 % (31-73) Lymphocytes (%) (Auto) 13 % (24-48) 18 % (24-48) Monocytes (%) (Auto) 11 % (0-9) 10 % (0-9) Eosinophils (%) (Auto) 1 % (0-3) 2 % (0-3) Basophils (%) (Auto) 1 % (0-3) 1 % (0-3) Neutrophils # (Auto) 4.8 x10^3uL (1.8-7.7) 3.6 x10^3uL (1.8-7.7) Lymphocytes # (Auto) 0.8 x10^3/uL (1.0-4.8) 0.9 x10^3/uL (1.0-4.8) Monocytes # (Auto) 0.7 x10^3/uL (0.0-1.1) 0.5 x10^3/uL (0.0-1.1) Eosinophils # (Auto) 0.0 x10^3/uL (0.0-0.7) 0.1 x10^3/uL (0.0-0.7) Basophils # (Auto) 0.0 x10^3/uL (0.0-0.2) 0.0 x10^3/uL (0.0-0.2) Sodium Level 137 mmol/L (136-145) 138 mmol/L (136-145) Potassium Level 4.1 mmol/L (3.5-5.1) 4.1 mmol/L (3.5-5.1) Chloride Level 104 mmol/L (98-107) 103 mmol/L (98-107) Carbon Dioxide Level 30 mmol/L (21-32) 30 mmol/L (21-32) Anion Gap 3 (6-14) 5 (6-14) Blood Urea Nitrogen 18 mg/dL (8-26) 16 mg/dL (8-26) Creatinine 1.0 mg/dL (0.7-1.3) 0.9 mg/dL (0.7-1.3) Estimated GFR (Cockcroft-Gault) 72.5 81.8 Glucose Level 152 mg/dL (70-99) 108 mg/dL (70-99) Calcium Level 8.1 mg/dL (8.5-10.1) 7.7 mg/dL (8.5-10.1) Microbiology 07/18/18 Urine Culture - Final, Complete 07/18/18 Urine Culture Result 1 (SENAIT) - Final, Complete 07/18/18 Antimicrobic Susceptibility - Final, Complete Medications Current Medications Fentanyl Citrate (Fentanyl 2ml Vial) 75 mcg 1X ONCE IV Last administered on 07/18/18at 22:56; Start 07/18/18 at 23:00; Stop 07/18/18 at 23:01; Status DC Ondansetron HCl (Zofran) 4 mg PRN Q8HRS PRN IV NAUSEA/VOMITING 1ST CHOICE; Start 07/19/18 at 00:00; Stop 07/19/18 at 23:59; Status DC Fentanyl Citrate (Fentanyl 2ml Vial) 75 mcg PRN Q1HR PRN IV SEVERE PAIN Last administered on 07/19/18at 22:36; Start 07/19/18 at 00:00; Stop 07/19/18 at 23:59; Status DC Ceftriaxone Sodium (Rocephin) 1 gm 1X ONCE IVP Last administered on 07/19/18at 00:34; Start 07/19/18 at 01:00; Stop 07/19/18 at 01:01; Status DC Aspirin (Children'S Aspirin) 81 mg DAILY PO Last administered on 07/21/18at 08:47; Start 07/19/18 at 13:00 Cyanocobalamin (Vitamin B-12) 500 mcg DAILY PO Last administered on 07/21/18 08:48; Start 07/19/18 at 13:00 Ergocalciferol (Vitamin D2) 50,000 unit WEEKLY PO Last administered on 07/20/18 08:26; Start 07/20/18 at 09:00 Fentanyl (Duragesic 50mcg/ Hr Patch) 1 patch Q3DAYS TD Last administered on 07/20/18 08:27; Start 07/20/18 at 09:00 Metoprolol Succinate (Toprol Xl) 100 mg HS PO Last administered on 07/21/18 20:39; Start 07/19/18 at 21:00 Docusate Sodium (Colace) 100 mg DAILY PO Last administered on 07/21/18 08:48; Start 07/19/18 at 13:00 Prochlorperazine Maleate (Compazine) 10 mg BID PO Last administered on 07/21/18 20:39; Start 07/19/18 at 13:00 Sertraline HCl (Zoloft) 100 mg BID PO Last administered on 07/21/18 20:38; Start 07/19/18 at 13:00 Ceftriaxone Sodium (Rocephin) 1 gm Q24H IVP Last administered on 07/21/18 23:28; Start 07/19/18 at 23:00 Sodium Chloride 1,000 ml @ 50 mls/hr Q20H IV Last administered on 07/20/18 22:55; Start 07/19/18 at 10:45 Cefazolin Sodium/ Dextrose 50 ml @ 100 mls/hr 1X PREOP PRN IV SURGERY; Start 07/19/18 at 13:06; Stop 07/20/18 at 13:05; Status DC Fentanyl Citrate (Fentanyl 2ml Vial) 100 mcg STK-MED ONCE .ROUTE ; Start 07/19/18 at 13:06; Stop 07/19/18 at 13:07; Status DC Ondansetron HCl (Zofran) 4 mg PRN Q6HRS PRN IV NAUSEA/VOMITING; Start 07/19/18 at 13:15; Stop 07/20/18 at 13:14; Status DC Fentanyl Citrate (Fentanyl 2ml Vial) 25 mcg PRN Q5MIN PRN IV MILD PAIN; Start 07/19/18 at 13:15; Stop 07/20/18 at 13:14; Status DC Fentanyl Citrate (Fentanyl 2ml Vial) 50 mcg PRN Q5MIN PRN IV MODERATE TO SEVERE PAIN Last administered on 07/19/18at 16:55; Start 07/19/18 at 13:15; Stop 07/20/18 at 13:14; Status DC Morphine Sulfate (Morphine Sulfate) 1 mg PRN Q10MIN PRN IV SEVERE PAIN Last administered on 07/19/18at 17:24; Start 07/19/18 at 13:15; Stop 07/20/18 at 13:14; Status DC Ringer's Solution 1,000 ml @ 30 mls/hr Q24H IV Last administered on 07/19/18at 17:27; Start 07/19/18 at 13:14; Stop 07/20/18 at 01:13; Status DC Hydromorphone HCl (Dilaudid) 0.5 mg PRN Q10MIN PRN IV SEV PAIN, Second choice Last administered on 07/19/18at 17:15; Start 07/19/18 at 13:15; Stop 07/20/18 at 13:14; Status DC Prochlorperazine Edisylate (Compazine) 5 mg PACU PRN PRN IV NAUSEA, MRX1 Last administered on 07/19/18at 17:11; Start 07/19/18 at 13:15; Stop 07/20/18 at 13:14; Status DC Propofol 20 ml @ As Directed STK-MED ONCE IV ; Start 07/19/18 at 13:37; Stop 07/19/18 at 13:38; Status DC Famotidine (Pepcid Vial) 20 mg STK-MED ONCE .ROUTE ; Start 07/19/18 at 13:37; Stop 07/19/18 at 13:38; Status DC Lidocaine HCl (Lidocaine Pf 2% Vial) 5 ml STK-MED ONCE .ROUTE ; Start 07/19/18 at 13:37; Stop 07/19/18 at 13:38; Status DC Ondansetron HCl (Zofran) 4 mg STK-MED ONCE .ROUTE ; Start 07/19/18 at 13:37; Stop 07/19/18 at 13:38; Status DC Dexamethasone Sodium Phosphate (Decadron) 4 mg STK-MED ONCE .ROUTE ; Start 07/19/18 at 13:37; Stop 07/19/18 at 13:38; Status DC Rocuronium [place] (Zemuron) 50 mg STK-MED ONCE .ROUTE ; Start 07/19/18 at 13:37; Stop 07/19/18 at 13:38; Status DC Fentanyl Citrate (Fentanyl 2ml Vial) 100 mcg STK-MED ONCE .ROUTE ; Start 07/19/18 at 13:37; Stop 07/19/18 at 13:38; Status DC Bupivacaine HCl/ Epinephrine Bitart (Sensorcain-Mpf Epi 0.5%-1:434714) 30 ml STK-MED ONCE .ROUTE ; Start 07/19/18 at 13:18; Stop 07/19/18 at 14:19; Status DC Phenylephrine HCl (PHENYLEPHRINE in 0.9% NACL PF) 1 mg STK-MED ONCE IV ; Start 07/19/18 at 14:20; Stop 07/19/18 at 14:21; Status DC Bupivacaine HCl/ Epinephrine Bitart (Sensorcain-Mpf Epi 0.5%-1:992597) 30 ml STK-MED ONCE INJ Last administered on 07/19/18at 14:21; Start 07/19/18 at 14:21; Stop 07/19/18 at 14:39; Status DC Acetaminophen (Tylenol) 500 mg PRN Q6HRS PRN PO MILD PAIN / TEMP Last administered on 07/19/18at 21:15; Start 07/19/18 at 16:45 Neostigmine Methylsulfate (Neostigmine Methylsulfate) 5 mg STK-MED ONCE .ROUTE ; Start 07/19/18 at 15:43; Stop 07/19/18 at 17:20; Status DC Glycopyrrolate (Robinul) 1 mg STK-MED ONCE .ROUTE ; Start 07/19/18 at 15:43; Stop 07/19/18 at 17:20; Status DC Desflurane (Suprane) 90 ml STK-MED ONCE IH ; Start 07/19/18 at 16:04; Stop 07/19/18 at 17:21; Status DC Fentanyl Citrate (Fentanyl 2ml Vial) 50 mcg PRN Q2HR PRN IV SEVERE PAIN Last administered on 07/21/18at 01:22; Start 07/20/18 at 01:45 Oxycodone/ Acetaminophen (Percocet 5/325) 1 tab PRN Q4HRS PRN PO SEVERE PAIN Last administered on 07/21/18at 17:43; Start 07/20/18 at 01:45 Multivitamins (Thera M Plus) 1 tab DAILY PO Last administered on 07/21/18at 08:48; Start 07/20/18 at 10:30 Ascorbic Acid (Vitamin C) 500 mg DAILY PO Last administered on 07/21/18at 08:47; Start 07/20/18 at 10:30 Lactobacillus Rhamnosus (Culturelle) 1 cap BID PO Last administered on 07/21/18at 20:39; Start 07/21/18 at 21:00 Active Scripts Active Augmentin 500-125 Tablet (Amoxicillin/Potassium Clav) 1 Each Tablet 1 Tab PO BID Culturelle (Lactobacillus Rhamnosus Gg) 1 Each Cap.sprink 1 Cap PO BID 14 Days Percocet 5-325 Mg Tablet (Oxycodone/Acetaminophen) 1 Each Tablet 1 Tab PO PRN Q4HRS PRN 14 Days Vitamin C (Ascorbic Acid) 500 Mg Tablet 500 Mg PO DAILY 30 Days Thera-M Tablet (Multivits,Ca,Minerals/Iron/Fa) 1 Each Tablet 1 Tab PO DAILY 30 Days Reported Toprol Xl (Metoprolol Succinate) 100 Mg Tab.er.24h 1 Tab PO HS Vitamin B-12 (Cyanocobalamin (Vitamin B-12)) 1,000 Mcg Tablet 500 Mcg PO DAILY Aspirin 81 Mg Tab.chew 1 Tab PO DAILY Compazine (Prochlorperazine Maleate) 10 Mg Tablet 10 Mg PO BID Vitamin D2 (Ergocalciferol (Vitamin D2)) 50,000 Unit Capsule 1 Cap PO WEEKLY Eliquis (Apixaban) 5 Mg Tablet 5 Mg PO BID FENTANYL 50mcg/hr (Fentanyl) 1 Each Patch.td72 1 Each TD Q3DAYS Stool Softener (Docusate Sodium) 50 Mg Capsule 100 Mg PO DAILY Ambien Cr (Zolpidem Tartrate) 12.5 Mg Tab.mphase 12.5 Mg PO HS Zoloft (Sertraline Hcl) 100 Mg Tablet 100 Mg PO BID Vitals/I & O Vital Sign - Last 24 Hours 07/21/18 07/21/18 07/21/18 07/21/18 08:00 08:48 11:00 15:00 Temp 98.1 98.3 98.1 98.3 Pulse 92 55 Resp 16 16 B/P (MAP) 133/66 (88) 111/56 (74) Pulse Ox 98 95 O2 Delivery Room Air Room Air Room Air Room Air 07/21/18 07/21/18 07/21/18 07/21/18 17:43 19:00 19:15 20:00 Temp 98.6 98.6 Pulse 95 Resp 18 B/P (MAP) 100/60 (73) Pulse Ox 98 O2 Delivery Room Air Room Air Room Air Room Air 07/21/18 07/21/18 07/22/18 07/22/18 20:39 23:04 00:08 02:50 Temp 98.7 98.3 98.7 98.3 Pulse 95 86 77 Resp 18 20 B/P (MAP) 100/60 122/59 (80) 93/54 (67) Pulse Ox 95 94 O2 Delivery Room Air Room Air Room Air Intake and Output 07/21/18 07/21/18 07/22/18 15:00 23:00 07:00 Intake Total 90 ml 480 ml Output Total 300 ml 150 ml Balance 90 ml -300 ml 330 ml Images Left Hip XR - Fracture of the subtrochanteric left femur, could be an incomplete fracture through the lateral cortex or nondisplaced complete fracture. Nutrition Consultation Dietary Evaluation: Recommendations by RD: Increase Calorie Intake, Protein supplementation Comments: ensure q day continue with mvi and vit c for wound healing Expected Outcomes/Goals: to meet > 75% est nutr needs Malnutrition Findings: Body Fat Depletion (Non Severe: Mild Depletion Weight Status: Appropriate CM RIDLEY MD July 22, 2018 07:37
[2018-07-22] MEDS ORDERED: BISACODYL 5 MG TABLET.DR. PO PRN (08:15)
--- NOTE | 2018-07-22 08:20 | NUR ---
SW following. Discussed with RN, pt will be transported to [facility] at 1100. Pain medication to be faxed. RN and family notified.
[2018-07-22] MEDS: ASPIRIN CHEWABLE 81 MG TABLET. PO SCH (08:40)
[2018-07-22] MEDS: PROCHLORPERAZINE 5 MG TABLET. PO SCH (08:40)
[2018-07-22] MEDS: LACTOBACILLUS RHAMNOSUS GG 1 CAPSULE. PO SCH (08:40)
[2018-07-22] MEDS: MULTIVITAMIN with MINERAL TABLET. PO SCH (08:40)
[2018-07-22] MEDS: DOCUSATE SODIUM 100 MG CAPSULE. PO SCH (08:40)
[2018-07-22] MEDS: CYANOCOBALAMIN (VITAMIN B-12) 1,000 MCG TABLET. PO SCH (08:41)
[2018-07-22] MEDS: SERTRALINE 50 MG TABLET. PO SCH (08:41)
[2018-07-22] MEDS: oxyCODONE/APAP 5/325 1 TAB TABLET PO PRN (08:41)
[2018-07-22] MEDS: ASCORBIC ACID 500 MG TABLET PO SCH (08:41)
[2018-07-22] MEDS ORDERED: MAGNESIUM HYDROXIDE 2,400 MG/30 ML ORAL.SUSP. PO ONE (09:00)
[2018-07-22] MEDS ORDERED: OXYC1TAB15 PO (10:39)
[2018-07-22 11:00] VITALS: BP 85/47
--- NOTE | 2018-07-22 12:33 | NUR ---
Discharge: Pt DC to [facility] per EMS munir d/t difficult transferring status. Left with belongings, DC packet, rx for percocet. IV dc'ed no concerns at this time. TR given to Maylin saldaña
== END 2018-07-22 12:30 | DRG 853 ==
LOC: ER 21:13 → 4 NORTH 23:45
PROVIDERS: ADMIT Family Medicine; ATTEND Family Medicine
PROC: 0QS704Z Reposition Left Upper Femur with Internal Fixation Device, Open Approach (ICD-10-PCS; principal; 2018-07-19 14:00)
DX: A41.9 Sepsis, unspecified organism (principal); S72.22XA Displaced subtrochanteric fracture of left femur, initial encounter for closed fracture; N39.0 Urinary tract infection, site not specified; M97.02XA Periprosthetic fracture around internal prosthetic left hip joint, initial encounter; I10 Essential (primary) hypertension; I48.2 Chronic atrial fibrillation; E78.5 Hyperlipidemia, unspecified; F41.9 Anxiety disorder, unspecified; M19.90 Unspecified osteoarthritis, unspecified site; E05.90 Thyrotoxicosis, unspecified without thyrotoxic crisis or storm; N40.0 Benign prostatic hyperplasia without lower urinary tract symptoms; M81.0 Age-related osteoporosis without current pathological fracture; W18.39XA Other fall on same level, initial encounter; Y93.89 Activity, other specified; Y92.89 Other specified places as the place of occurrence of the external cause; Y99.8 Other external cause status; Z79.01 Long term (current) use of anticoagulants; Z82.49 Family history of ischemic heart disease and other diseases of the circulatory system
CPT/HCPCS: 36415; 73502; 76000; 80048; 80053; 81001; 82553; 83735; 84484; 85025; 85610; 85730; 87086; 87186; 87641; 93005; 96374; 96375; A7015; C1713; C1887; J0696; J0780; J1100; J1170; J2001; J2270; J2370; J2405; J2704; J2710; J3010; J3490; J7030; J7120; Q0164; 97110; 97530; 99285-25

== ENCOUNTER 2019-03-28 23:40 | Emergency (ER) | payer MEDICARE, OTHER ==
[~2019-03-28] VITALS: Ht 182.9 cm; Wt 79.4 kg
[~2019-03-28 23:40] MED LIST changes: +AMOX1TAB58 PO; +ASCO500T2 PO; +CYAN-25 PO; -CYAN10005 PO; +LACT1CAP19 PO; +MULT1TAB90 PO; +OXYC1TAB15 PO
[2019-03-29] MEDS ORDERED: ONDANSETRON PF 4 MG/2 ML VIAL. IV ONE (01:30)
[2019-03-29] MEDS ORDERED: MORPHINE SULFATE 2 MG/ML VIAL. IV ONE (01:30)
--- NOTE | 2019-03-29 01:44 | RAD ---
Right hip AP lateral x-rays HISTORY: Fall, right hip pain. FINDINGS: Right total hip arthroplasty hardware as well as a mid to distal femoral shaft fixation plate laterally with screws along the shaft and femoral condyles. At the proximal femoral shaft and subtrochanteric femur for a length of the femur of approximately 20 cm there is an acute traumatic comminuted fracture with slight angulation which crosses both the upper fixation plate and screws as well as the cerclage wire and the femoral intramedullary stem new from pelvis x-ray from August 08, 2018 concerning for acute fracture. No dislocation of the femoral head prosthesis. IMPRESSION: Acute traumatic fracture of the right subtrochanteric femur and proximal femoral shaft as described above. Right hip arthroplasty and fixation plate and screws of the femoral shaft as described above. Right knee AP lateral x-rays graph history: Fall, right leg pain. FINDINGS: Lateral fixation plate along the distal femur and femoral condyle screws. Advanced right knee osteoarthritis with joint space narrowing and spurring. No fracture or dislocation of the knee. Soft tissues are unremarkable. IMPRESSION: No acute osseous injury of the right knee. Osteoarthritis. Electronically signed by: García Ross MD (03/29/2019 1:42 AM) [facility]
[2019-03-29] MEDS ORDERED: TRAM50TA PO (01:55)
--- NOTE | 2019-03-29 01:55 | PHYS DOC ---
Past Medical History Past Medical History: A-Fib, Hyperthyroid Past Surgical History: Hip Replacement Alcohol Use: None Drug Use: None Adult General Chief Complaint Chief Complaint: HIP PAIN HPI HPI Patient is a 78 year old male with history of bilateral hip replacements presents to the ER after sliding out of his recliner landing on his right side. Patient describes pain to right hip and knee. Movements make the pain worse. Patient with weight bearing after initial event. Patient denies LOC, hitting his head. Patient denies headache, chest pain, SOB, nausea or vomiting. Pain is described as achey. Review of Systems Review of Systems Constitutional: Denies fever or chills [] Respiratory: Denies cough or shortness of breath [] Cardiovascular: No additional information not addressed in HPI [] GI: Denies abdominal pain, nausea, vomiting, bloody stools or diarrhea [] Musculoskeletal: right hip and knee pain Integument: Denies rash or skin lesions [] All other systems were reviewed and found to be within normal limits, except as documented in this note. Current Medications Current Medications Current Medications Medications (Trade) Dose Ordered Sig/Joesph Start Time Stop Time Status Last Admin Dose Admin Morphine Sulfate (Morphine Sulfate) 2 mg 1X ONCE 03/29/19 01:30 03/29/19 01:31 DC 03/29/19 01:32 2 MG Ondansetron HCl (Zofran) 4 mg 1X ONCE 03/29/19 01:30 03/29/19 01:31 DC 03/29/19 01:31 4 MG Allergies Allergies Allergies Coded Allergies Type Severity Reaction Last Updated Verified No Known Drug Allergies 04/14/13 No Physical Exam Physical Exam Constitutional: Well developed, well nourished, no acute distress, non-toxic appearance. [] HENT: Normocephalic, atraumatic, bilateral external ears normal, oropharynx mois t, no oral exudates, nose normal. [] Eyes: PERRLA, EOMI, conjunctiva normal, no discharge. [] Cardiovascular:Heart rate regular rhythm, no murmur [] Lungs & Thorax: Bilateral breath sounds clear to auscultation [] Abdomen: Bowel sounds normal, soft, no tenderness, no masses, no pulsatile masses. [] Skin: Warm, dry, no erythema, no rash. [] Extremities: TTP to right hipe and knee, no edema, no obvious deformity, mild valgus stress on RLE [] Neurologic: Alert and oriented X 3, no focal deficits noted. [] Psychologic: Affect normal, judgement normal, mood normal. [] Current Patient Data Vital Signs Vital Signs Date Time Temp Pulse Resp B/P (MAP) Pulse Ox O2 Delivery O2 Flow Rate FiO2 03/29/19 03:41 98 16 118/63 (81) 96 Room Air 03/29/19 00:10 99.7 99.7 EKG EKG [] Radiology/Procedures Radiology/Procedures [facility] [address] [place] [address] IMAGING REPORT Signed PATIENT: EARLENE AVILA ACCOUNT: [id number] : 1940 LOCATION: ER AGE: 78 SEX: M EXAM STATUS: REG ER ORD. PHYSICIAN: CRISTIANA GARZA MD REASON: fall, hip pain; KNEE PAIN PROCEDURE: KNEE RIGHT 2V Right hip AP lateral x-rays HISTORY: Fall, right hip pain. FINDINGS: Right total hip arthroplasty hardware as well as a mid to distal femoral shaft fixation plate laterally with screws along the shaft and femoral condyles. At the proximal femoral shaft and subtrochanteric femur for a length of the femur of approximately 20 cm there is an acute traumatic comminuted fracture with slight angulation which crosses both the upper fixation plate and screws as well as the cerclage wire and the femoral intramedullary stem new from pelvis x-ray from August 08, 2018 concerning for acute fracture. No dislocation of the femoral head prosthesis. IMPRESSION: Acute traumatic fracture of the right subtrochanteric femur and proximal femoral shaft as described above. Right hip arthroplasty and fixation plate and screws of the femoral shaft as described above. Right knee AP lateral x-rays graph history: Fall, right leg pain. FINDINGS: Lateral fixation plate along the distal femur and femoral condyle screws. Advanced right knee osteoarthritis with joint space narrowing and spurring. No fracture or dislocation of the knee. Soft tissues are unremarkable. IMPRESSION: No acute osseous injury of the right knee. Osteoarthritis. Electronically signed by: Zack Ross MD (03/29/2019 1:42 AM) [facility] DICTATED and SIGNED BY: ZACK ROSS MD DATE: 03/29/19141 [] [facility] [address] [place] [address] IMAGING REPORT Signed PATIENT: EARLENE AVILA ACCOUNT: [id number] : 1940 LOCATION: ER AGE: 78 SEX: M EXAM STATUS: REG ER ORD. PHYSICIAN: CRISTIANA GARZA MD REASON: fall, hip pain PROCEDURE: HIP RIGHT 2 VIEW Right hip AP lateral x-rays HISTORY: Fall, right hip pain. FINDINGS: Right total hip arthroplasty hardware as well as a mid to distal femoral shaft fixation plate laterally with screws along the shaft and femoral condyles. At the proximal femoral shaft and subtrochanteric femur for a length of the femur of approximately 20 cm there is an acute traumatic comminuted fracture with slight angulation which crosses both the upper fixation plate and screws as well as the cerclage wire and the femoral intramedullary stem new from pelvis x-ray from August 08, 2018 concerning for acute fracture. No dislocation of the femoral head prosthesis. IMPRESSION: Acute traumatic fracture of the right subtrochanteric femur and proximal femoral shaft as described above. Right hip arthroplasty and fixation plate and screws of the femoral shaft as described above. Right knee AP lateral x-rays graph history: Fall, right leg pain. FINDINGS: Lateral fixation plate along the distal femur and femoral condyle screws. Advanced right knee osteoarthritis with joint space narrowing and spurring. No fracture or dislocation of the knee. Soft tissues are unremarkable. IMPRESSION: No acute osseous injury of the right knee. Osteoarthritis. Electronically signed by: Zack oRss MD (03/29/2019 1:42 AM) [facility] DICTATED and SIGNED BY: ZACK ROSS MD DATE: 03/29/19141 Course & Med Decision Making Course & Med Decision Making Pertinent Labs and Imaging studies reviewed. (See chart for details) [] Patient is a 78 year old male with history of bilateral hip replacements presents to the ER after sliding out of his recliner landing on his right side. Patient describes pain to right hip and knee. Movements make the pain worse. Patient with weight bearing after initial event. Patient denies LOC, hitting his head. Patient denies headache, chest pain, SOB, nausea or vomiting. Pain is described as achey. Imaging reviewed Discussed findings with DR. ELAM - reviewed xray with discussion regarding possible fracture vs not After review of images, it was thought there was no acute fracture Recommend dc home with weight bearing precautions Pain medications provided upon dc Discussed with patient and daughter at bedside Recommend follow up with ortho as needed, can call office for appointment Return precautions provided Dragon Disclaimer Dragon Disclaimer This electronic medical record was generated, in whole or in part, using a voice recognition dictation system. Departure Departure Impression: Primary Impression: Fall Additional Impressions: Contusion, hip Knee contusion Disposition: HOME, SELF-CARE Condition: IMPROVED Referrals: ROHAN ELLISON (PCP) Patient Instructions: Fall Prevention and Home Safety, [id number], Hip Pain, Knee Pain, [id number] Additional Instructions: Recommend follow up with PCP 3 - 5 days Return to the ER with worsening symptoms, intractable pain, fever, altered mental status Tylenol/Motrin as needed for pain Xray of hip and knee without evidence of fracture or dislocation Tramadol rx x [address] findings [address] ELAM - recommend follow up, call office for appointment No fracture after review with films and discussion with DR. ELAM Scripts Tramadol Hcl (TRAMADOL HCL) 50 Mg Tablet 50 MG PO Q6HRS PRN for PAIN for 3 Days, #12 TAB Prov: CRISTIANA GARZA MD 03/29/19 Problem Qualifiers Primary Impression: Fall Encounter type: initial encounter Qualified Codes: W19.XXXA - Unspecified fall, initial encounter Additional Impressions: Contusion, hip Encounter type: initial encounter Laterality: right Qualified Codes: S70.01XA - Contusion of right hip, initial encounter Knee contusion Encounter type: initial encounter Laterality: right Qualified Codes: S80.01XA - Contusion of right knee, initial encounter CRISTIANA GARZA MD Mar 29, 2019 01:55
[2019-03-29 03:41] VITALS: BP 118/63
== END 2019-03-29 03:50 | disposition home or self-care (01) ==
LOC: ER 23:40
DX: S70.01XA Contusion of right hip, initial encounter (principal); S80.01XA Contusion of right knee, initial encounter; E05.90 Thyrotoxicosis, unspecified without thyrotoxic crisis or storm; I48.20 Chronic atrial fibrillation, unspecified; Z98.890 Other specified postprocedural states; W17.89XA Other fall from one level to another, initial encounter; Y93.89 Activity, other specified; Y92.89 Other specified places as the place of occurrence of the external cause; Y99.8 Other external cause status
CPT/HCPCS: 73502; 73560; 96374; 96375; 99284; J2270; J2405

== ENCOUNTER 2019-06-18 04:39 | Emergency (ER) | payer MEDICARE, OTHER ==
[~2019-06-18] VITALS: Ht 182.9 cm; Wt 79.5 kg
[~2019-06-18 04:39] MED LIST changes: +ACET325T9 PO; +ALBU2.5V8 NEB; +MAGN400O7 PO; +TRAM50TA PO
--- NOTE | 2019-06-18 05:05 | PHYS DOC ---
Past Medical History Past Medical History: A-Fib, Hyperthyroid Past Surgical History: Hip Replacement Smoking Status: Never Smoker Alcohol Use: None Drug Use: None Adult General Chief Complaint Chief Complaint: fall HPI HPI Patient is a 78 year old male who presents after falling at nursing facility. Patient reportedly is normally wheelchair-bound but had ambulated to the bathroom this evening and fell forward, landing in his shower and hitting his head. Patient does complain of mild headache and also has some pain in his left mid thigh. He rates pain as mild to moderate.[] Review of Systems Review of Systems Constitutional: Denies fever or chills [] Respiratory: Denies cough or shortness of breath [] Cardiovascular: No additional information not addressed in HPI [] GI: Denies abdominal pain, nausea, vomiting, bloody stools or diarrhea [] Musculoskeletal: Positive left mid thigh pain [] Integument: Positive skin tears[] Neurologic: [place] of mild headache without focal weakness or sensory changes [] Current Medications Current Medications Current Medications Medications (Trade) Dose Ordered Sig/Joesph Start Time Stop Time Status Last Admin Dose Admin Lidocaine/ Epinephrine (LIDOCAINE 2%-EPI 1:100,000 multi-dose) 20 ml 1X ONCE 06/18/19 06:00 06/18/19 06:01 DC Allergies Allergies Allergies Coded Allergies Type Severity Reaction Last Updated Verified No Known Drug Allergies 04/14/13 No Physical Exam Physical Exam Constitutional: Well developed, well nourished, no acute distress, non-toxic appearance. [] HENT: Normocephalic, with approximately 3.5 similar laceration noted to the parietal region of scalp on the left, extending down into subcutaneous tissue. Margins are slightly ragged., bilateral external ears normal, oropharynx moist, no oral exudates, nose normal. [] Eyes: PERRLA, EOMI, conjunctiva normal, no discharge. [] Neck: Normal range of motion, no tenderness, supple, no stridor. [] Cardiovascular: Regular rate and rhythm[] Lungs & Thorax: Bilateral breath sounds clear to auscultation [] Extremities: Tenderness to left mid thigh, no cyanosis, no clubbing, ROM intact, no edema. [] Current Patient Data Vital Signs Vital Signs Date Time Temp Pulse Resp B/P (MAP) Pulse Ox O2 Delivery O2 Flow Rate FiO2 06/18/19 04:40 99.0 106 16 109/58 (75) 97 Room Air 99.0 EKG EKG [] Radiology/Procedures Radiology/Procedures [] Course & Med Decision Making Course & Med Decision Making Pertinent Labs and Imaging studies reviewed. (See chart for details) Patient moved to room upon arrival was evaluated by ER medical staff after which imaging was ordered to include left femur as well as CT head and neck. Patient was taken down for imaging prior to my ability to repair laceration and patient is being signed out to oncoming ER physician at 6:00 AM. Laceration Repair by me: Anesthesia: 1% lidocaine locally Location: Left parietal region of scalp Tendon/Joint/Nerves: No injury Foreign body: None detected after copious irrigation and exploration Technique: A total of 4 anny were placed with good reapproximation of wound margins Complexity: No subcutaneous sutures/mucosal repair/edge excision Post Closure Length: 3.5 cm Patient's bleeding was easily controlled in the department and there is no indication of anemia. No evidence of compartment syndrome, neurologic injury, vascular injury, open joint, tendon laceration, or foreign body. Patient is appropriate for outpatient follow up. 48 hour wound check. Scar minimization instructions given. Dragon Disclaimer Dragon Disclaimer This electronic medical record was generated, in whole or in part, using a voice recognition dictation system. Departure Departure Referrals: ROHAN ELLISON (PCP) Additional Instructions: Anny may be removed in 7-10 days. XAVIER MARINELLI Jr. DO Jun 18, 2019 05:04
[2019-06-18] MEDS ORDERED: LIDOCAINE 2%/EPI 1:100,000 20 ML VIAL. IJ ONE (06:00)
--- NOTE | 2019-06-18 06:15 | RAD ---
INDICATION: Status post fall COMPARISON: August 08, 2018 IMPRESSION: Left femur: 4 views obtained. Left hip arthroplasty changes with plate and screws as well as wire seen at the proximal femur. There is some osseous resorption at the proximal femur with lucency within the marrow. No evidence of malalignment at left hip. Calcific atherosclerosis. There is some callus formation adjacent to the femur. On the frontal view there is an obliquely oriented lucency at the distal femoral diaphysis distal to the arthroplasty. Could be secondary to causes such as a vascular channel which would be the most likely cause unless there is point tenderness in the region to suggest an alternative cause such as nondisplaced fracture. Electronically signed by: Josh Lawler MD (06/18/2019 6:12 AM) [id number]
--- NOTE | 2019-06-18 06:53 | RAD ---
INDICATION: Status post fall COMPARISON: None. TECHNIQUE: Axial CT images obtained through the head and cervical spine. One or more of the following individualized dose reduction techniques were utilized for this examination: 1. Automated exposure control; 2. Adjustment of the mA and/or kV according to patient size; 3. Use of iterative reconstruction technique. FINDINGS: Head: Diffuse prominence of the ventricles and sulci which can be seen with age-related volume loss. Scattered foci of low density of the white matter. Suspected small left-sided scalp cephalohematoma. There is some nasal septal bowing to the left. Regional low density in the right cerebral hemisphere. No definite acute hemorrhage. Cervical spine: Degenerative changes of the cervical spine. Postoperative changes with posterior decompression at C3-C6. There is also posterior fusion changes with pedicle screws and stabilizing ruperto at C3-C6. There is some curvature of the cervical spine. Grade 1 anterolisthesis of C7 on T1. Linear lucency through the inferior endplate of C7 anteriorly. This had a similar appearance on prior. IMPRESSION: * No definite acute intracranial hemorrhage. * Scattered foci of low density within the white matter including a more confluent region the right cerebral hemisphere. Could be from causes such as chronic small vessel ischemic disease but nonspecific appearance and if there is clinical concern for acute causes MRI could better assess to ensure that none of this is acute. * Postoperative changes to the cervical spine with posterior decompression changes and fusion again seen. * Repeat demonstration of grade 1 anterolisthesis of C7 on T1 with linear lucency through the inferior endplate of C7 anteriorly which could be from a chronic finding such as vascular channel given that this was likely present on prior as well. Electronically signed by: Josh Lawler MD (06/18/2019 6:50 AM) [id number]
[2019-06-18 07:33] VITALS: BP 122/77
--- NOTE | 2019-06-19 10:47 | EKG ---
[facility] [address] [place] [address] Test Date: 2019-06-18 Test Time: 04:49:26 Pat Name: EARLENE AIVLA Department: Room: Gender: M [employer]: : 1940 Requested By: MILLIE WALKER Order Number: [id number] Reading MD: Measurements Intervals [place] Rate: 108 P: [place]: QRS: 2 QRSD: 80 T: -41 QT: 366 QTc: 495 Interpretive Statements ATRIAL FLUTTER T ABNORMALITY IN INFERIOR LEADS ABNORMAL ECG RI6.01 No previous ECG available for comparison
== END 2019-06-18 08:39 | disposition home or self-care (01) ==
LOC: ER 04:39
DX: S01.01XA Laceration without foreign body of scalp, initial encounter (principal); M79.652 Pain in left thigh; I48.91 Unspecified atrial fibrillation; W18.09XA Striking against other object with subsequent fall, initial encounter; Y93.89 Activity, other specified; Y92.89 Other specified places as the place of occurrence of the external cause; Y99.8 Other external cause status
CPT/HCPCS: 12002; 70450; 72125; 73552; 93005; 99285; J3490